=== PATIENT | female | born 1965 | race Two or more races ===

== ENCOUNTER 2020-02-08 15:12 | Inpatient (IN) | payer MEDICAID, OTHER ==
[~2020-02-08] VITALS: Ht 162.6 cm; Wt 113.6 kg
[2020-02-08] MEDS ORDERED: SODIUM CHLORIDE 0.9% 1,000 ML IV ONE (15:24)
[2020-02-08 15:52] LABS: Basophils # (auto) 0 10 ^3/uL (0-0.2); Eosinophils # (auto) 0.1 10 ^3/uL (0-0.8); Monocytes # (auto) 0.7 10 ^3/uL (0-1.3); Neutrophils # (auto) 10.6 10 ^3/uL (1.6-8.6)
[2020-02-08 15:54] LABS: Basophils % (auto) 0.4 % (0.0-2.0); Eosinophils % (auto) 0.6 % (0.0-7.0); Hematocrit 24.6 % (36.0-46.0); Hemoglobin 7.5 g/dL (12.2-16.2); Lymphocytes # (auto) 1.1 10 ^3/uL (0.4-5.4); Lymphocytes % (auto) 8.9 % (10.0-50.0); Mean Corpuscular Hemoglobin 22.5 pg (28.0-32.0); Mean Corpuscular Hgb Conc. 30.5 g/dL (32.0-36.0); Mean Corpuscular Volume 73.8 fL (80.0-100.0); Monocytes % (auto) 5.5 % (0.0-12.0); Neutrophils % (auto) 84.6 % (37.0-80.0); Nucleated Red Blood Cells % 0.8 %; Platelet Count (auto) 494 10^3/uL (140-450); Red Blood Cells 3.33 10^6/uL (4.0-5.20); White Blood Cell 12.5 10^3/uL (4.4-10.8)
[2020-02-08 15:55] LABS: Red Cell Distribution Width 20.9 % (11.8-14.3)
[2020-02-08 16:03] LABS: Calcium 8.1 mg/dL (8.5-10.1); Potassium 3.4 mmol/L (3.5-5.1)
[2020-02-08 16:08] LABS: BUN/Creatinine Ratio 15.5; Bilirubin, Total 1.8 mg/dL (0.2-1.0); Total Protein 6.4 g/dL (6.4-8.2)
[2020-02-08] MEDS ORDERED: FUROSEMIDE 40 MG/4 ML VIAL IV ONE (16:45)
[2020-02-08] MEDS ORDERED: SODIUM CHL 3% 500 ML IV ONE (16:45)
[2020-02-08] MEDS ORDERED: POTASSIUM EFFERVESENT TAB 25 MEQ PO ONE (16:45)
[2020-02-08] MEDS ORDERED: SPIRONOLACTONE 25 MG TAB PO ONE (16:45)
[2020-02-08] MEDS: MAGNESIUM SULFATE 1GM/100ML 100 ML IV SCH ×3 (17:36→23:03)
[2020-02-08] MEDS ORDERED: LEVOTHYROXINE SODIUM 25 MCG TAB PO ONE (18:15)
[2020-02-08] MEDS ORDERED: HYDROcodone-ACET 5/325MG TAB PO PRN (18:45)
[2020-02-08] MEDS ORDERED: MORPHINE SULF INJ 2 MG/ML SYRINGE 1ML IV PRN ×2 (18:45)
[2020-02-08] MEDS ORDERED: hydrALAZINE HCL 20 MG/ML VL IV PRN (18:45)
[2020-02-08] MEDS ORDERED: ONDANSETRON HCL 4 MG/2 ML VIAL IV PRN (18:45)
[2020-02-08] MEDS ORDERED: NITROGLYCERIN 0.4 MG SL TAB SL PRN (18:45)
[2020-02-08 19:14] LABS: Urine Bacteria MANY /hpf (None Seen); Urine Blood TRACE /uL (Negative); Urine WBC 30 /hpf (0 - 5)
[2020-02-08 19:31] LABS: % Iron Saturation 4.4 % (15-50)
[2020-02-08 19:38] LABS: Alcohol, Urine < 3.0 mg/dL (0-10); Amphetamine Screen, Urine NEGATIVE (NEGATIVE); Barbiturate Scree,Urine NEGATIVE (NEGATIVE); Benzodiazephine Screen, Urine NEGATIVE (NEGATIVE); Cannabinoid Screen, Urine NEGATIVE (NEGATIVE); Cocaine Screen, Urine NEGATIVE (NEGATIVE); Opiate Scree,Urine NEGATIVE (NEGATIVE); Phencyclidine Screen, Urine NEGATIVE (NEGATIVE)
[2020-02-08] MEDS: ATORVASTATIN 20 MG TAB PO SCH (21:55)
[2020-02-08] MEDS: METOPROLOL TARTRATE 25 MG TAB PO SCH (21:56)
[2020-02-08] MEDS ORDERED: MAGNESIUM SULFATE 1GM/100ML 100 ML IV ONE (23:00)
[2020-02-09] MEDS: FUROSEMIDE 40 MG/4 ML VIAL IV SCH ×2 (06:17→18:00)
[2020-02-09 06:47] LABS: Eosinophils # (auto) 0.1 10 ^3/uL (0-0.8); Hemoglobin 7.1 g/dL (12.2-16.2); Lymphocytes # (auto) 0.8 10 ^3/uL (0.4-5.4); Monocytes # (auto) 0.4 10 ^3/uL (0-1.3); Nucleated Red Blood Cells % 0.6 %
[2020-02-09 06:51] LABS: Basophils # (auto) 0 10 ^3/uL (0-0.2); Basophils % (auto) 0.3 % (0.0-2.0); Eosinophils % (auto) 0.8 % (0.0-7.0); Hematocrit 23.4 % (36.0-46.0); Lymphocytes % (auto) 6.5 % (10.0-50.0); Mean Corpuscular Hemoglobin 23.1 pg (28.0-32.0); Mean Corpuscular Hgb Conc. 30.2 g/dL (32.0-36.0); Mean Corpuscular Volume 76.4 fL (80.0-100.0); Monocytes % (auto) 3.7 % (0.0-12.0); Neutrophils # (auto) 10.5 10 ^3/uL (1.6-8.6); Neutrophils % (auto) 88.7 % (37.0-80.0); Platelet Count (auto) 463 10^3/uL (140-450); Red Blood Cells 3.06 10^6/uL (4.0-5.20); White Blood Cell 11.9 10^3/uL (4.4-10.8)
[2020-02-09 07:00] LABS: Red Cell Distribution Width 21.2 % (11.8-14.3)
[2020-02-09 07:17] LABS: Potassium 3.2 mmol/L (3.5-5.1)
[2020-02-09 07:33] LABS: BUN/Creatinine Ratio 14.5; Calcium 7.9 mg/dL (8.5-10.1)
[2020-02-09] MEDS ORDERED: POTASSIUM CHL 20 Meq TABLET PO ONE (09:00)
[2020-02-09 09:25] LABS: Free T4 (Free Thyroxine) 0.82 ng/dL (0.89-1.76)
[2020-02-09 09:26] LABS: Free T3 1.49 pg/mL (2.3-4.2)
[2020-02-09] MEDS: METOPROLOL TARTRATE 25 MG TAB PO SCH (10:00)
[2020-02-09] MEDS: LISINOPRIL 10 MG TAB PO SCH (10:00)
[2020-02-09 10:04] LABS: INR 1.13 (0.9-1.15)
[2020-02-09] MEDS: ASPirin-EC 81 mg tab PO SCH (10:15)
[2020-02-09] MEDS: FAMOTIDINE 20 MG TAB PO SCH (10:15)
[2020-02-09] MEDS: ENOXAPARIN SOD 40 MG/0.4 ML SYRINGE SC SCH (10:16)
[2020-02-09 13:13] LABS: Cholesterol 131 mg/dL (< 200)
[2020-02-09 13:15] LABS: HDL Cholesterol 70 mg/dL (40-59); LDL Cholesterol 53 mg/dL (< 100); Triglycerides 81 mg/dL (< 150)
[2020-02-09] MEDS ORDERED: LEVOTHYROXINE SODIUM 100 MCG/5 ML INJ IV ONE (13:15)
[2020-02-09] MEDS ORDERED: cefTRIAXone 1GM/50ML D5W 50 ML IV ONE (15:45)
[2020-02-09] MEDS ORDERED: AZITHROMYCIN 500MG/ 250ML 250 ML IV ONE (16:30)
[2020-02-09] MEDS: ALBUTEROL SULF 2.5 MG/0.5ML(0.5%) NEB SOLN NEB SCH ×2 (18:08→22:00)
[2020-02-09] MEDS: IPRATROPIUM BROM 0.5 MG/2.5ML INH SOL NEB SCH ×2 (18:09→22:00)
[2020-02-09 19:21] VITALS: BP 104/59
[2020-02-09] MEDS ORDERED: ALBUTEROL SULF HFA 90MCG INH 200DOSE IN SCH (22:00)
[2020-02-09] MEDS ORDERED: ALBUTEROL SULF 2.5 MG/0.5ML(0.5%) NEB SOLN NEB SCH (22:00)
[2020-02-09] MEDS: ATORVASTATIN 20 MG TAB PO SCH (22:14)
[2020-02-10] VITALS (7 sets, daily range): BP systolic 90–110; BP diastolic 55–81
--- NOTE | 2020-02-10 00:30 | NUR ---
Telemetry admit from [facility] admitted to Telemetry unit after SBAR received. Patient oriented to ANDREAS WALTERS RN primary RN, unit, room, bed, and unit policies regarding patient care and visiting hours. Patient now on continuous telemetry monitoring, tele box #21 and telemetry reading on arrival to unit is Sinus Rhythm at 80bpm. Patient placed on bedside oxygen, weighed by bedscale and encouraged to call if they need something. All questions and concerns addressed, patient verbalized understanding.
--- NOTE | 2020-02-10 00:55 | NUR ---
Blood draw done
[2020-02-10] MEDS: ALBUTEROL SULF 2.5 MG/0.5ML(0.5%) NEB SOLN NEB SCH ×6 (02:00→22:55)
[2020-02-10] MEDS: IPRATROPIUM BROM 0.5 MG/2.5ML INH SOL NEB SCH ×6 (02:00→22:55)
--- NOTE | 2020-02-10 02:00 | NUR ---
RT NOTE HHN TX HELD PER DR LEVY UNTIL TEST RESULTS COME BACK. RESULTS NOT AVAILABLE AT THIS TIME.
--- NOTE | 2020-02-10 03:25 | NUR ---
Patient Negative for Covid. Will transfer patient out of unit.
--- NOTE | 2020-02-10 03:30 | NUR ---
Endorsed care to Mervat KUHN. Patient transferred to room 209 via wheelchair on 4L O2 nasal canula.
[2020-02-10] MEDS: LEVOTHYROXINE SODIUM 50 MCG TAB PO SCH (05:52)
[2020-02-10] MEDS: FUROSEMIDE 40 MG/4 ML VIAL IV SCH ×2 (06:00→17:43)
--- NOTE | 2020-02-10 07:06 | NUR ---
Closing Note patient awake resting in bed with even and unlabored respirations, on oxygen at 2L via NC, no s/s of distress. Bed in lowest locked position with side rails up x 2 and call light within reach. Endorsed care to day shift RN.
--- NOTE | 2020-02-10 08:20 | NUR ---
OPENING SHIFT NOTE: PATIENT RESTING ON SIDE OF THE BED, ASSISTED TO CHAIR. RESPIRATIONS EVEN AND UNLABORED. A/OX4. ASSESSED IV ACCESS FOR STRESS LAB PROTOCOL. IV 22G, NEED ADDITIONAL 20G FOR PROCEDURE. MIDLINE ORDERS PLACED, SINCE PATIENT NOTED TO HAVE LIMITED ACCESS. STRESS LAB MADE AWARE, PATIENT NPO. URINE CULTURE COLLECTED. PATIENT UPDATED ON PLAN OF CARE. CALL LIGHT WITHIN REACH, WILL CONTINUE TO MONITOR.
[2020-02-10] MEDS ORDERED: ADENOSINE 93 MG in GIVE UN-DILUTED 0 ML IV STA (08:39)
[2020-02-10] MEDS: cefTRIAXone 1GM/50ML D5W 50 ML IV SCH (09:02)
[2020-02-10] MEDS: ASPirin-EC 81 mg tab PO SCH (09:16)
[2020-02-10] MEDS: FAMOTIDINE 20 MG TAB PO SCH (09:16)
[2020-02-10] MEDS: ENOXAPARIN SOD 40 MG/0.4 ML SYRINGE SC SCH (09:17)
[2020-02-10] MEDS: LISINOPRIL 10 MG TAB PO SCH (09:18)
[2020-02-10] MEDS ORDERED: AZITHROMYCIN 500MG/ 250ML 250 ML IV SCH (10:00)
--- NOTE | 2020-02-10 10:48 | NUR ---
PATIENT ABLE TO AMBULATE TO TOILET WITH FWW. PATIENT REPORTS HAVING A BM.
[2020-02-10] MEDS ORDERED: POTASSIUM CHL 20 Meq TABLET PO ONE ×2 (12:00→15:45)
--- NOTE | 2020-02-10 12:30 | NUR ---
ZAMBRANO DISCONTINUED: 400ML LIGHT LETTY URINE NOTED IN BAG. 10CC REMOVED FROM BALLOON. CATHETER INTACT. HAT PLACED IN TOILET FOR ACCURATE I/O'S.
[2020-02-10 12:59] LABS: Basophils # (auto) 0.1 10 ^3/uL (0-0.2); Eosinophils # (auto) 0.2 10 ^3/uL (0-0.8); Mean Corpuscular Volume 79.5 fL (80.0-100.0); Monocytes # (auto) 0.6 10 ^3/uL (0-1.3); White Blood Cell 11.4 10^3/uL (4.4-10.8)
[2020-02-10 13:01] LABS: Eosinophils % (auto) 1.7 % (0.0-7.0); Hematocrit 26.1 % (36.0-46.0); Hemoglobin 7.3 g/dL (12.2-16.2); Lymphocytes % (auto) 8.9 % (10.0-50.0); Mean Corpuscular Hemoglobin 22.2 pg (28.0-32.0); Mean Corpuscular Hgb Conc. 27.9 g/dL (32.0-36.0); Monocytes % (auto) 5.3 % (0.0-12.0); Neutrophils # (auto) 9.5 10 ^3/uL (1.6-8.6); Neutrophils % (auto) 83.1 % (37.0-80.0); Nucleated Red Blood Cells % 0.4 %; Platelet Count (auto) 415 10^3/uL (140-450); Red Blood Cells 3.28 10^6/uL (4.0-5.20)
--- NOTE | 2020-02-10 13:06 | NUR ---
PATIENT BELONGINGS BROUGHT TO BEDSIDE.
[2020-02-10 13:08] LABS: Red Cell Distribution Width 22.1 % (11.8-14.3)
[2020-02-10 13:11] LABS: Calcium 8.6 mg/dL (8.5-10.1); Potassium 3.6 mmol/L (3.5-5.1)
[2020-02-10 13:14] LABS: BUN/Creatinine Ratio 13.4
[2020-02-10] MEDS ORDERED: SODIUM FERR GLUC 62.5MG/5ML 125 MG in SODIUM CHL 0.9% 100 ML IV ONE (13:30)
--- NOTE | 2020-02-10 13:37 | NUR ---
CALL MADE TO PHARMACY FOR NEW FERRLECIT ORDER.
--- NOTE | 2020-02-10 14:35 | NUR ---
CALL MADE TO PHARMACY A SECOND TIME FOR FERRLECIT TO BE SENT UP.
--- NOTE | 2020-02-10 14:38 | NUR ---
RT AT BEDSIDE.
--- NOTE | 2020-02-10 15:15 | NUR ---
Midline Placement: Patient educated on need for midline placement. All risks and benefits explained and all questions and concerns addresses prior to procedure. 18g/10cm midline inserted via left cephalic vein using Ultrasound. Sterile technique utilized. Blood return obtained from lumen and flushed easily with NS using proper technique. Midline secured with saline lock; biodisc and occlusive dressing applied. Primary RN notified. Midline lot #[id number]
--- NOTE | 2020-02-10 15:57 | NUR ---
STRATEGY ANALYST AT BEDSIDE.
[2020-02-10] MEDS: NICOTINE 21MG/24 HR TOPICAL PATCH TD SCH (18:05)
--- NOTE | 2020-02-10 18:50 | NUR ---
CARE ENDORSED TO NOC RN.
--- NOTE | 2020-02-10 19:35 | NUR ---
Opening Shift Note Assumed care of patient, awake and alert. No S/S of distress/SOB or pain. Instructed on POC and to call for assist PRN, will continue to monitor for changes Q1hr and PRN.
[2020-02-10] MEDS: ATORVASTATIN 20 MG TAB PO SCH (23:28)
[2020-02-10] MEDS: POTASSIUM CHL 20 Meq TABLET PO SCH (23:29)
[2020-02-11] VITALS (7 sets, daily range): BP systolic 84–118; BP diastolic 47–63
[2020-02-11] MEDS: IPRATROPIUM BROM 0.5 MG/2.5ML INH SOL NEB SCH ×6 (02:41→22:15)
[2020-02-11] MEDS: ALBUTEROL SULF 2.5 MG/0.5ML(0.5%) NEB SOLN NEB SCH ×6 (02:41→22:15)
[2020-02-11] MEDS: FUROSEMIDE 40 MG/4 ML VIAL IV SCH ×2 (05:48→18:00)
[2020-02-11] MEDS: LEVOTHYROXINE SODIUM 50 MCG TAB PO SCH (06:40)
[2020-02-11 07:02] LABS: Potassium 4.2 mmol/L (3.5-5.1)
[2020-02-11 07:03] LABS: BUN/Creatinine Ratio 15.8; Calcium 8.7 mg/dL (8.5-10.1)
--- NOTE | 2020-02-11 07:50 | NUR ---
Opening Shift Note Assumed care of patient, awake and alert. No S/S of distress/SOB or pain. Instructed on POC and to call for assist PRN, will continue to monitor for changes Q1hr and PRN. Bed locked in lowest position with two side rails up and call light in reach.
[2020-02-11] MEDS: cefTRIAXone 1GM/50ML D5W 50 ML IV SCH (09:12)
[2020-02-11] MEDS: LISINOPRIL 10 MG TAB PO SCH (09:12)
[2020-02-11] MEDS: FAMOTIDINE 20 MG TAB PO SCH (09:12)
[2020-02-11] MEDS: POTASSIUM CHL 20 Meq TABLET PO SCH ×2 (09:13→21:36)
[2020-02-11] MEDS: ASPirin-EC 81 mg tab PO SCH (09:13)
[2020-02-11] MEDS: ENOXAPARIN SOD 40 MG/0.4 ML SYRINGE SC SCH (09:13)
[2020-02-11] MEDS: AZITHROMYCIN 250 MG TAB PO SCH (09:13)
[2020-02-11] MEDS: NICOTINE 21MG/24 HR TOPICAL PATCH TD SCH (09:14)
[2020-02-11] MEDS: Ensure HIGH Protein Chocolate 8oz Bottle PO SCH ×2 (12:00→18:22)
[2020-02-11] MEDS: SODIUM FERR GLUC 62.5MG/5ML 125 MG in SODIUM CHL 0.9% 100 ML IV SCH (15:18)
--- NOTE | 2020-02-11 15:40 | NUR ---
Assumed care of patient Patient is awake, alert and oriented x4. No signs or symptoms of distress noted at this time. Bed in low and locked position, call light within reach. Patient instructed to call for assistance. Will continue to monitor Q1 hour and PRN.
--- NOTE | 2020-02-11 19:10 | NUR ---
Closing note Report given to steward/stewardess night RN. No signs or symptoms of distress noted at this time.
--- NOTE | 2020-02-11 19:30 | NUR ---
Opening Shift Note Assumed care of patient, awake and alert X4. No S/S of distress/SOB or pain. Call light is within reach, side rails up x2, bed is in the lowest position. Instructed on POC and to call for assist PRN. All questions and concerns answered, will continue to monitor for changes Q1hr and PRN. Bed locked in lowest position with two side rails up and call light in reach.
[2020-02-11] MEDS: ATORVASTATIN 20 MG TAB PO SCH (21:36)
[2020-02-12] VITALS (7 sets, daily range): BP systolic 97–128; BP diastolic 56–75
[2020-02-12] MEDS: IPRATROPIUM BROM 0.5 MG/2.5ML INH SOL NEB SCH ×6 (02:21→22:20)
[2020-02-12] MEDS: ALBUTEROL SULF 2.5 MG/0.5ML(0.5%) NEB SOLN NEB SCH ×6 (02:21→22:20)
[2020-02-12] MEDS: LEVOTHYROXINE SODIUM 50 MCG TAB PO SCH (06:07)
[2020-02-12] MEDS: FUROSEMIDE 40 MG/4 ML VIAL IV SCH ×2 (06:07→17:18)
[2020-02-12 07:15] LABS: Basophils # (auto) 0.1 10 ^3/uL (0-0.2); Basophils % (auto) 0.8 % (0.0-2.0); Eosinophils # (auto) 0.2 10 ^3/uL (0-0.8); Hemoglobin 7.5 g/dL (12.2-16.2); Lymphocytes # (auto) 1.1 10 ^3/uL (0.4-5.4); Lymphocytes % (auto) 10.5 % (10.0-50.0); Mean Corpuscular Hemoglobin 23.3 pg (28.0-32.0); Mean Corpuscular Hgb Conc. 27.9 g/dL (32.0-36.0); Mean Corpuscular Volume 83.7 fL (80.0-100.0); Monocytes # (auto) 0.8 10 ^3/uL (0-1.3); Monocytes % (auto) 7.8 % (0.0-12.0); Neutrophils # (auto) 7.9 10 ^3/uL (1.6-8.6); Neutrophils % (auto) 78.9 % (37.0-80.0); Platelet Count (auto) 236 10^3/uL (140-450); Red Blood Cells 3.22 10^6/uL (4.0-5.20); Red Cell Distribution Width 23.1 % (11.8-14.3); White Blood Cell 10.1 10^3/uL (4.4-10.8)
[2020-02-12 07:32] LABS: Potassium 5.3 mmol/L (3.5-5.1)
[2020-02-12 07:45] LABS: BUN/Creatinine Ratio 19.8; Calcium 9.4 mg/dL (8.5-10.1)
[2020-02-12] MEDS: Ensure HIGH Protein Chocolate 8oz Bottle PO SCH ×3 (08:00→17:18)
[2020-02-12] MEDS: LISINOPRIL 10 MG TAB PO SCH (10:00)
[2020-02-12] MEDS: NICOTINE 21MG/24 HR TOPICAL PATCH TD SCH (10:07)
[2020-02-12] MEDS: ENOXAPARIN SOD 40 MG/0.4 ML SYRINGE SC SCH (10:08)
[2020-02-12] MEDS: FAMOTIDINE 20 MG TAB PO SCH (10:08)
[2020-02-12] MEDS: cefTRIAXone 1GM/50ML D5W 50 ML IV SCH (10:08)
[2020-02-12] MEDS: ASPirin-EC 81 mg tab PO SCH (10:09)
[2020-02-12] MEDS: POTASSIUM CHL 20 Meq TABLET PO SCH (10:09)
[2020-02-12] MEDS: AZITHROMYCIN 250 MG TAB PO SCH (10:09)
--- NOTE | 2020-02-12 11:48 | NUR ---
Est energy needs 0959-9730 kcal (14-16 kcal/kg BW 122.1kg) Est protein needs 55-71g (1-1.3g/kg IBW 54.5kg) Will reassess prn. Addendum: 02/12/20 at [address] Amended: Links added.
[2020-02-12] MEDS: SODIUM FERR GLUC 62.5MG/5ML 125 MG in SODIUM CHL 0.9% 100 ML IV SCH (12:23)
--- NOTE | 2020-02-12 12:39 | NUR ---
Pt was observed ambulating independently to bathroom with a 4WW. Pt states she does not want skilled physical therapy because she does not need assistance with ambulation. Will discharge patient from caseload.
--- NOTE | 2020-02-12 19:25 | NUR ---
Opening shift note Assumed care of patient who is sitting up on the side of the bed A&Ox4, respirations even and non-labored with no s/s of distress. Discussed POC with patient, fluid restrictions and strict I/Os, in which the patient verbalized understanding. IV patent and saline locked at this time. Bed is in the lowest locked position with 2 side rails up. The call light is within reach. Will continue to monitor.
[2020-02-12] MEDS: ATORVASTATIN 20 MG TAB PO SCH (23:15)
[2020-02-13] VITALS (7 sets, daily range): BP systolic 92–116; BP diastolic 49–70
[2020-02-13] MEDS: IPRATROPIUM BROM 0.5 MG/2.5ML INH SOL NEB SCH ×6 (02:10→22:15)
[2020-02-13] MEDS: ALBUTEROL SULF 2.5 MG/0.5ML(0.5%) NEB SOLN NEB SCH ×6 (02:10→22:15)
[2020-02-13] MEDS: ACETAMINOPHEN 500 MG TAB PO PRN (04:30)
--- NOTE | 2020-02-13 04:30 | NUR ---
Patient temperature 101.8 Administered 500 mg Tylenol per EMAR. Will continue to monitor. Addendum: 02/13/20 at 0646 by DONAVON CHRISTENSEN RN RN Removed blankets, cold packs administered.
--- NOTE | 2020-02-13 05:30 | NUR ---
Temperature reassessed Patient temperature 99.0. Will continue to monitor.
[2020-02-13] MEDS: FUROSEMIDE 40 MG/4 ML VIAL IV SCH ×2 (05:41→18:00)
[2020-02-13] MEDS: LEVOTHYROXINE SODIUM 50 MCG TAB PO SCH (05:42)
[2020-02-13 06:26] LABS: Basophils # (auto) 0.1 10 ^3/uL (0-0.2); Monocytes # (auto) 0.9 10 ^3/uL (0-1.3); Monocytes % (auto) 8.2 % (0.0-12.0); Neutrophils # (auto) 8.9 10 ^3/uL (1.6-8.6); White Blood Cell 11.2 10^3/uL (4.4-10.8)
[2020-02-13 06:28] LABS: Basophils % (auto) 0.8 % (0.0-2.0); Eosinophils # (auto) 0.3 10 ^3/uL (0-0.8); Eosinophils % (auto) 2.4 % (0.0-7.0); Hematocrit 21.3 % (36.0-46.0); Lymphocytes % (auto) 9.1 % (10.0-50.0); Mean Corpuscular Hemoglobin 23.2 pg (28.0-32.0); Mean Corpuscular Hgb Conc. 29.3 g/dL (32.0-36.0); Mean Corpuscular Volume 79.3 fL (80.0-100.0); Neutrophils % (auto) 79.5 % (37.0-80.0); Platelet Count (auto) 401 10^3/uL (140-450); Red Blood Cells 2.69 10^6/uL (4.0-5.20)
[2020-02-13 06:46] LABS: Potassium 4.9 mmol/L (3.5-5.1); Red Cell Distribution Width 22.8 % (11.8-14.3)
[2020-02-13 06:49] LABS: Hemoglobin 6.2 g/dL (12.2-16.2)
--- NOTE | 2020-02-13 06:51 | NUR ---
Critical Lab Hgb 6.2. Hospitalist paged.
[2020-02-13 06:56] LABS: BUN/Creatinine Ratio 24.3; Calcium 8.8 mg/dL (8.5-10.1)
--- NOTE | 2020-02-13 06:56 | NUR ---
Hospitalist Adam returned call Orders: Type and screen, 2 units of blood. Give one unit, hold second unit.
--- NOTE | 2020-02-13 07:10 | NUR ---
Closing shift note Patient resting with eyes closed, respirations even and non-labored without s/s of distress. Endorsed care to day RNTaryn.
[2020-02-13] MEDS: Ensure HIGH Protein Chocolate 8oz Bottle PO SCH ×3 (07:25→18:00)
[2020-02-13] MEDS: ENOXAPARIN SOD 40 MG/0.4 ML SYRINGE SC SCH (08:04)
[2020-02-13] MEDS: cefTRIAXone 1GM/50ML D5W 50 ML IV SCH (09:00)
[2020-02-13] MEDS: ASPirin-EC 81 mg tab PO SCH (10:00)
[2020-02-13] MEDS: POTASSIUM CHL 10 Meq TABLET PO SCH (10:00)
[2020-02-13] MEDS ORDERED: FUROSEMIDE 20 MG/2 ML VIAL IV ONE (10:15)
--- NOTE | 2020-02-13 10:15 | NUR ---
BLOOD TRANSFUSION STARTED
[2020-02-13] MEDS: FAMOTIDINE 20 MG TAB PO SCH (11:36)
[2020-02-13] MEDS: AZITHROMYCIN 250 MG TAB PO SCH (11:36)
[2020-02-13] MEDS: NICOTINE 21MG/24 HR TOPICAL PATCH TD SCH (11:36)
--- NOTE | 2020-02-13 12:30 | NUR ---
NEW IV INSERTION TO THE LEFT AC 20 G . PATIENT TOLERATED WELL.
--- NOTE | 2020-02-13 12:45 | NUR ---
ZAMBRANO INSERTED PER ORDERS. PATIENT TOLERATED WELL .
--- NOTE | 2020-02-13 13:10 | NUR ---
BLOOD TRANSFUSION ENDED PATIENT TOLERATED WELL. NO SIGNS AND SYMPTOMS OF DISTRESS NOTED.
--- NOTE | 2020-02-13 18:44 | NUR ---
NO 2ND UNIT OF BLOOD GIVEN PER THE NOTE IN BLOOD ORDER PLACED. LABS WILL BE DRAWN IN AM PER DR LEVY AND ORDERS THAT ARE PLACED.
--- NOTE | 2020-02-13 19:30 | NUR ---
Opening shift note Assumed care of patient who is A&Ox4, sitting up in bed, respirations even and non-labored with no s/s of distress or current dizziness. Discussed POC with patient who verbalized understanding. Villalobos below patient, patent, draining clear pale yellow urine. Bed is in lowest locked position with 2 side rails up. Call light within reach, will continue to monitor.
[2020-02-13] MEDS: ATORVASTATIN 20 MG TAB PO SCH (21:08)
[2020-02-14] MEDS: ALBUTEROL SULF 2.5 MG/0.5ML(0.5%) NEB SOLN NEB SCH ×4 (02:10→13:59)
[2020-02-14] MEDS: IPRATROPIUM BROM 0.5 MG/2.5ML INH SOL NEB SCH ×4 (02:10→13:59)
[2020-02-14 05:00] VITALS: BP 103/60
[2020-02-14] MEDS: FUROSEMIDE 40 MG/4 ML VIAL IV SCH (05:47)
[2020-02-14] MEDS: LEVOTHYROXINE SODIUM 50 MCG TAB PO SCH (05:47)
[2020-02-14 06:14] LABS: Basophils # (auto) 0.1 10 ^3/uL (0-0.2); Eosinophils # (auto) 0.3 10 ^3/uL (0-0.8); Eosinophils % (auto) 2.8 % (0.0-7.0); Hemoglobin 7.4 g/dL (12.2-16.2); Monocytes # (auto) 0.9 10 ^3/uL (0-1.3); Neutrophils # (auto) 7.7 10 ^3/uL (1.6-8.6)
[2020-02-14 06:17] LABS: Basophils % (auto) 0.6 % (0.0-2.0); Lymphocytes # (auto) 1.1 10 ^3/uL (0.4-5.4); Lymphocytes % (auto) 10.6 % (10.0-50.0); Mean Corpuscular Hemoglobin 24.7 pg (28.0-32.0); Mean Corpuscular Hgb Conc. 30.8 g/dL (32.0-36.0); Mean Corpuscular Volume 80.2 fL (80.0-100.0); Monocytes % (auto) 9.1 % (0.0-12.0); Neutrophils % (auto) 76.9 % (37.0-80.0); Nucleated Red Blood Cells % 0.1 %; Platelet Count (auto) 400 10^3/uL (140-450); Red Blood Cells 2.99 10^6/uL (4.0-5.20)
[2020-02-14 06:23] LABS: Potassium 4.5 mmol/L (3.5-5.1)
[2020-02-14 06:29] LABS: BUN/Creatinine Ratio 25.8; Calcium 9.2 mg/dL (8.5-10.1)
[2020-02-14 06:49] LABS: Red Cell Distribution Width 22.4 % (11.8-14.3)
--- NOTE | 2020-02-14 07:00 | NUR ---
Opening Shift Note Received report on the patient. Awake lying in bed. Patient shows no signs of distress at this time. Discussed the plan of care with the patient. Bed in lowest position, side rails up x2, and the call light is within reach.
--- NOTE | 2020-02-14 07:10 | NUR ---
Closing shift note Patient resting, no s/s of distress at this time. Endorsed care to day shift RN.
[2020-02-14 08:44] VITALS: BP 84/49
[2020-02-14] MEDS ORDERED: POVIDONE IODINE 10 % TOPICAL OINT 30GM TOP ONE (08:52)
[2020-02-14] MEDS: ASPirin-EC 81 mg tab PO SCH (09:25)
[2020-02-14] MEDS: cefTRIAXone 1GM/50ML D5W 50 ML IV SCH (09:25)
[2020-02-14] MEDS: Ensure HIGH Protein Chocolate 8oz Bottle PO SCH ×3 (09:25→17:35)
[2020-02-14] MEDS: NICOTINE 21MG/24 HR TOPICAL PATCH TD SCH (09:26)
[2020-02-14] MEDS: AZITHROMYCIN 250 MG TAB PO SCH (09:26)
[2020-02-14] MEDS: FAMOTIDINE 20 MG TAB PO SCH (09:26)
[2020-02-14] MEDS: POTASSIUM CHL 10 Meq TABLET PO SCH (10:00)
[2020-02-14] MEDS ORDERED: chlordiazePOXIDE HCL 25 MG CAP PO ONE (11:00)
[2020-02-14 13:00] VITALS: BP 117/67
--- NOTE | 2020-02-14 15:20 | NUR ---
assessment Patient is a 54 year old female who is alert and oriented. Patients cognitive abilities are intact. Prior to admission patient lived home with family and functioned independently. Patient informed me she is able to care for her own ADLs. Per patient she will return home to her prior living arrangements post discharge. Patient informed me she is here visiting her son in [place]. Patient is from [place]. Patient informed me she drinks heavily and smokes cigarettes. Patient is open to quitting ETOH. I have provided patient with resources for inpatient and out patient facilities along with AA meeting. Patient has a rollator for home use. I will continue to monitor and follow up as appropriate. I informed patient she has a right to speak to a social work nurse regarding all care. I informed patient she has a right to participate in any and all discharge planning. Patient does not have a POA and advanced directive. I have offered patient information on POA and advanced directives. I informed the patient the advantages and benefits of having an Advanced Directive. Patient verbalized understanding and agreed to discharge plan. Addendum: 02/14/20 at 1527 by Candace PHILLIPS Amended: Links added.
[2020-02-14] MEDS ORDERED: ALBUTEROL SULF 2.5 MG/0.5ML(0.5%) NEB SOLN NEB PRN (15:30)
[2020-02-14] MEDS ORDERED: FOLIC ACID 1 MG TAB PO ONE (15:30)
[2020-02-14] MEDS ORDERED: IPRATROPIUM BROM 0.5 MG/2.5ML INH SOL NEB PRN (15:30)
[2020-02-14] MEDS ORDERED: SODIUM FERR GLUC 62.5MG/5ML 125 MG in SODIUM CHL 0.9% 100 ML IV ONE (15:45)
[2020-02-14] MEDS: chlordiazePOXIDE HCL 25 MG CAP PO SCH ×2 (17:35→23:22)
[2020-02-14] MEDS ORDERED: FUROSEMIDE 20 MG/2 ML VIAL IV SCH (18:00)
--- NOTE | 2020-02-14 19:00 | NUR ---
assume care, patient asleep, easy to arouse. Unlabored breathing, O2 at 2LPM via nasal canula. Bed on lowest position, call light with in reach, side rail up X2 for safety.
--- NOTE | 2020-02-14 20:18 | NUR ---
Respiratory note: ASSESSED PT FOR PRN MED NEB TX. PS SHOWS NO S/S OF SOB OR RESPIRATORY DISTRESS. INFORMED PT IF SOB OCCURS CONTACT RESPIRATORY FOR TX. WILL CONTINUE TO MONITOR.
[2020-02-14 22:00] VITALS: BP 105/65
--- NOTE | 2020-02-14 22:00 | NUR ---
Patient still sleep, we left her her dinner tray so she can eat once she wakes up, unlabored breathing, No signs of distress.
[2020-02-14] MEDS: ATORVASTATIN 20 MG TAB PO SCH (22:40)
--- NOTE | 2020-02-14 23:26 | NUR ---
Patient is awake now. denies pain or discomfort. Medication given to patient. Patient is having tremors. Noted patient has old scabs through her forearms and bilateral knees . Will continue to monitor.
[2020-02-15 05:00] VITALS: BP 110/71
[2020-02-15] MEDS: LEVOTHYROXINE SODIUM 50 MCG TAB PO SCH (06:07)
[2020-02-15] MEDS: chlordiazePOXIDE HCL 25 MG CAP PO SCH ×3 (06:07→17:46)
[2020-02-15 06:10] LABS: Basophils # (auto) 0.1 10 ^3/uL (0-0.2); Eosinophils # (auto) 0.3 10 ^3/uL (0-0.8); Hemoglobin 7.3 g/dL (12.2-16.2); Lymphocytes # (auto) 0.8 10 ^3/uL (0.4-5.4); Lymphocytes % (auto) 8.6 % (10.0-50.0); Mean Corpuscular Hemoglobin 25.2 pg (28.0-32.0); Monocytes # (auto) 0.8 10 ^3/uL (0-1.3)
[2020-02-15 06:14] LABS: Basophils % (auto) 0.8 % (0.0-2.0); Eosinophils % (auto) 3.4 % (0.0-7.0); Hematocrit 24.1 % (36.0-46.0); Mean Corpuscular Hgb Conc. 30.5 g/dL (32.0-36.0); Mean Corpuscular Volume 82.6 fL (80.0-100.0); Monocytes % (auto) 8.8 % (0.0-12.0); Neutrophils % (auto) 78.4 % (37.0-80.0); Platelet Count (auto) 429 10^3/uL (140-450); Red Blood Cells 2.91 10^6/uL (4.0-5.20)
[2020-02-15 06:23] LABS: Red Cell Distribution Width 24.3 % (11.8-14.3)
[2020-02-15 06:33] LABS: BUN/Creatinine Ratio 23.2; Calcium 8.9 mg/dL (8.5-10.1); Potassium 4.7 mmol/L (3.5-5.1)
[2020-02-15 09:00] VITALS: BP 125/76
[2020-02-15] MEDS: FOLIC ACID 1 MG TAB PO SCH (09:37)
[2020-02-15] MEDS: FAMOTIDINE 20 MG TAB PO SCH (09:37)
[2020-02-15] MEDS: NICOTINE 21MG/24 HR TOPICAL PATCH TD SCH (09:37)
[2020-02-15] MEDS: ASPirin-EC 81 mg tab PO SCH (09:37)
[2020-02-15] MEDS: cefTRIAXone 1GM/50ML D5W 50 ML IV SCH (09:38)
[2020-02-15] MEDS: AZITHROMYCIN 250 MG TAB PO SCH (09:38)
[2020-02-15] MEDS: POTASSIUM CHL 10 Meq TABLET PO SCH (09:38)
[2020-02-15] MEDS: Ensure HIGH Protein Chocolate 8oz Bottle PO SCH ×3 (09:38→17:48)
[2020-02-15] MEDS ORDERED: FUROSEMIDE 40 MG/4 ML VIAL IV ONE (11:45)
--- NOTE | 2020-02-15 12:26 | NUR ---
Nutrition Followup Notes Pt wt is 118.0 kg Pt was sleeping with no relatives at bedside when rounded this morning. Pt is with a Cardiac diet, appetite is good aeb 100% PO intake per RN doc. Pt with no noted distress per RN doc. Will continue to monitor PO status, skin status, pertinent labs and weight trends. Will f/u in 3-5 days. Est energy needs [id number] kcal (14-16 kcal/kg BW 122.1kg) Est protein needs 55-71g (1-1.3g/kg IBW 54.5kg) Will reassess prn. LABS: Na 130 L, Cl 90 L, Alb 3.0 L GI: Pt had 1 BM on 02/11 per RN doc BS: 18 mod risk Refer to wound assessment report for full details. PES: Obesity r/t caloric intake in excess of needs aeb pt BMI is 46.2kg/m2 Comments 1) Continue to monitor po intake, labs, skin 2) Refer pt to [facility] on dc 3) Continue current plan of care
[2020-02-15 13:00] VITALS: BP 108/52
[2020-02-15] MEDS: SODIUM FERR GLUC 62.5MG/5ML 125 MG in SODIUM CHL 0.9% 100 ML IV SCH (13:13)
[2020-02-15] MEDS: ACETAMINOPHEN 500 MG TAB PO PRN (16:50)
--- NOTE | 2020-02-15 16:51 | NUR ---
T 100.3, Tylenol 500 mg given, cooling measure placed. will recheck.
[2020-02-15 17:00] VITALS: BP 110/60
--- NOTE | 2020-02-15 17:55 | NUR ---
Recheck T 98.2.
--- NOTE | 2020-02-15 18:46 | NUR ---
IS at bedside, teaching explained, verbalized understanding.
[2020-02-15] MEDS: IPRATROPIUM BROM 0.5 MG/2.5ML INH SOL NEB SCH (19:21)
[2020-02-15] MEDS: ACETYLCYSTEINE 10 %(100MG/ML) SOL 4ML NEB SCH (19:22)
[2020-02-15] MEDS: ALBUTEROL SULF 2.5 MG/0.5ML(0.5%) NEB SOLN NEB SCH (19:22)
--- NOTE | 2020-02-15 19:29 | NUR ---
Opening Shift Note Received report and assumed care of patient. Patient is asleep, awakens to voice. No signs or symptoms of distress noted. Instructed patient on plan of care and to call for assistance as needed. Will continue to monitor.
[2020-02-15 20:11] VITALS: BP 110/60
[2020-02-15 22:00] VITALS: BP 115/66
[2020-02-15] MEDS: ATORVASTATIN 20 MG TAB PO SCH (22:18)
[2020-02-16] MEDS: chlordiazePOXIDE HCL 25 MG CAP PO SCH ×4 (00:49→17:46)
[2020-02-16 05:00] VITALS: BP 96/53
[2020-02-16] MEDS: ACETAMINOPHEN 500 MG TAB PO PRN ×2 (05:54→18:00)
[2020-02-16] MEDS: LEVOTHYROXINE SODIUM 50 MCG TAB PO SCH (05:54)
[2020-02-16] MEDS: IPRATROPIUM BROM 0.5 MG/2.5ML INH SOL NEB SCH ×4 (06:36→18:25)
[2020-02-16] MEDS: ALBUTEROL SULF 2.5 MG/0.5ML(0.5%) NEB SOLN NEB SCH ×4 (06:36→18:25)
[2020-02-16] MEDS: ACETYLCYSTEINE 10 %(100MG/ML) SOL 4ML NEB SCH ×4 (06:36→18:25)
--- NOTE | 2020-02-16 06:55 | NUR ---
Temperature Patient temperature 100.9. Administered Tylenol 500mg per MD order. Implemented cooling measures. Patient temperature recheck 99.8. Will continue to monitor.
--- NOTE | 2020-02-16 07:41 | NUR ---
Jung catheter dc'd Order to discontinue jung catheter. Jung dc'd with clean technique following deflation of balloon. Patient tolerated well with no complaints of pain. Continue care.
[2020-02-16] MEDS: Ensure HIGH Protein Chocolate 8oz Bottle PO SCH ×3 (08:33→18:28)
[2020-02-16 09:00] VITALS: BP 121/66
[2020-02-16] MEDS: ASPirin-EC 81 mg tab PO SCH (09:26)
[2020-02-16] MEDS: FAMOTIDINE 20 MG TAB PO SCH (09:26)
[2020-02-16] MEDS: POTASSIUM CHL 10 Meq TABLET PO SCH (09:26)
[2020-02-16] MEDS: FOLIC ACID 1 MG TAB PO SCH (09:26)
[2020-02-16] MEDS: NICOTINE 21MG/24 HR TOPICAL PATCH TD SCH (09:28)
[2020-02-16] MEDS ORDERED: FUROSEMIDE 40 MG TAB PO ONE (10:15)
[2020-02-16] MEDS ORDERED: POTASSIUM CHL 10 Meq TABLET PO ONE (10:15)
--- NOTE | 2020-02-16 10:40 | NUR ---
Pt signed consents for procedure, waiting on labs.
[2020-02-16] MEDS: SODIUM FERR GLUC 62.5MG/5ML 125 MG in SODIUM CHL 0.9% 100 ML IV SCH (12:00)
--- NOTE | 2020-02-16 12:00 | NUR ---
Patient urinated clear yellow urine.
[2020-02-16 12:25] LABS: INR 1.01 (0.9-1.15)
[2020-02-16 13:00] VITALS: BP 106/73
--- NOTE | 2020-02-16 13:28 | NUR ---
Pt brought to radiology via wheelchair for paracentesis. Patients vitals remained stable and patient tolerated well. 1308- HR 89 RR 18 BP 120/73 SPO2 100% 1312- Dr Reece at bedside for procedure 1313- HR 87 RR 20 BP 102/54 SPO2 100% 1318- HR 95 RR 25 BP 95/77 SPO2 100% 1322- HR 93 RR 15 BP 144/80 SPO2 99% Pt had 600mls of clear yellow liquid. Pt transported to radiology. Addendum: 02/16/20 at 1340 by Ana Rosa Mackey RN PROCEDURE WAS THORACENTESIS. APPLIED TRANSPARENT DRESSING OVER PETROLEUM DRESSING. PT RETURNED TO ROOM AND UNIT NOTIFIED.
[2020-02-16] MEDS ORDERED: LEV50T PO (16:41)
[2020-02-16] MEDS ORDERED: FAMO20TA10 PO (16:41)
[2020-02-16] MEDS ORDERED: FOLI1TAB6 PO (16:41)
[2020-02-16] MEDS ORDERED: ALBUAER3 IN (16:41)
[2020-02-16] MEDS ORDERED: POTA-167 PO (16:41)
[2020-02-16] MEDS ORDERED: FER325T PO (16:41)
[2020-02-16] MEDS ORDERED: ASPI-394 PO (16:41)
[2020-02-16] MEDS ORDERED: ATOR20TA50 PO (16:41)
[2020-02-16] MEDS ORDERED: FURO40TA4 PO (16:41)
[2020-02-16 17:00] VITALS: BP 105/63
--- NOTE | 2020-02-16 18:10 | NUR ---
Medication delivered to bedside, explained to the patient, verbalized understanding.
--- NOTE | 2020-02-16 18:15 | NUR ---
T 100.5, Tylenol 500 mg given and cooling measure placed. Will continue to monitor.
[2020-02-16 22:00] VITALS: BP 105/56
[2020-02-16] MEDS: ATORVASTATIN 20 MG TAB PO SCH (22:37)
[2020-02-17] MEDS: ALBUTEROL SULF 2.5 MG/0.5ML(0.5%) NEB SOLN NEB SCH ×4 (00:33→18:11)
[2020-02-17] MEDS: IPRATROPIUM BROM 0.5 MG/2.5ML INH SOL NEB SCH ×4 (00:33→18:11)
[2020-02-17] MEDS: ACETYLCYSTEINE 10 %(100MG/ML) SOL 4ML NEB SCH ×4 (00:37→18:10)
[2020-02-17] MEDS: chlordiazePOXIDE HCL 25 MG CAP PO SCH ×5 (00:49→22:50)
[2020-02-17 05:08] VITALS: BP 112/72
[2020-02-17 05:40] LABS: Basophils # (auto) 0.1 10 ^3/uL (0-0.2); Hematocrit 28.6 % (36.0-46.0); Mean Corpuscular Hemoglobin 25.4 pg (28.0-32.0); Monocytes # (auto) 0.8 10 ^3/uL (0-1.3); Neutrophils % (auto) 81.8 % (37.0-80.0)
[2020-02-17 05:42] LABS: Basophils % (auto) 0.6 % (0.0-2.0); Eosinophils # (auto) 0.4 10 ^3/uL (0-0.8); Eosinophils % (auto) 3.4 % (0.0-7.0); Hemoglobin 8.6 g/dL (12.2-16.2); Lymphocytes # (auto) 0.8 10 ^3/uL (0.4-5.4); Lymphocytes % (auto) 7.2 % (10.0-50.0); Mean Corpuscular Hgb Conc. 29.9 g/dL (32.0-36.0); Neutrophils # (auto) 9.4 10 ^3/uL (1.6-8.6); Nucleated Red Blood Cells % 0.1 %; Platelet Count (auto) 487 10^3/uL (140-450); Red Blood Cells 3.37 10^6/uL (4.0-5.20); White Blood Cell 11.5 10^3/uL (4.4-10.8)
[2020-02-17 05:55] LABS: Calcium 9.4 mg/dL (8.5-10.1); Potassium 4.7 mmol/L (3.5-5.1); Red Cell Distribution Width 26.3 % (11.8-14.3)
[2020-02-17 05:57] LABS: BUN/Creatinine Ratio 26.7
[2020-02-17] MEDS: LEVOTHYROXINE SODIUM 50 MCG TAB PO SCH (06:10)
[2020-02-17 09:00] VITALS: BP 105/58
[2020-02-17] MEDS: cefTRIAXone 1GM/50ML D5W 50 ML IV SCH (09:33)
[2020-02-17] MEDS: FAMOTIDINE 20 MG TAB PO SCH (09:33)
[2020-02-17] MEDS: ASPirin-EC 81 mg tab PO SCH (09:34)
[2020-02-17] MEDS: POTASSIUM CHL 10 Meq TABLET PO SCH (09:34)
[2020-02-17] MEDS: FOLIC ACID 1 MG TAB PO SCH (09:34)
[2020-02-17] MEDS: FUROSEMIDE 40 MG TAB PO SCH (09:34)
[2020-02-17] MEDS: NICOTINE 21MG/24 HR TOPICAL PATCH TD SCH (09:35)
[2020-02-17] MEDS: Ensure HIGH Protein Chocolate 8oz Bottle PO SCH ×3 (09:35→18:12)
--- NOTE | 2020-02-17 10:45 | NUR ---
2nd PT eval order received. Pt was recently evaluated and discharged from physical therapy due to being at [facility]. Pt states she is still at [facility] and does not want skilled physical therapy. She states she has all equipment she needs at home. She is safe to discharge home at this time.
--- NOTE | 2020-02-17 11:00 | NUR ---
PAGED VENEER STAPLER SILVICULTURE PROFESSOR RE: ORDER FOR HOME O2 AND BEDSIDE COMMODE.
--- NOTE | 2020-02-17 11:50 | NUR ---
CRAB STEAMER Received a page from HATTIE Chen at 10:59 regarding Social Service for home oxygen and bedside commode. Informed HATTIE Chen I will contact patient health plan to obtain authorization and company to fax DME. Placed called Linda with [employer] advising her patient has orders for home oxygen and bedside commode. Per Linda with [employer] order can be Fax to [facility] . Per Linda no authorization is needed for bedside commode authorization for home oxygen is [id number]. Placed follow up call to HATTIE Chen at 11:46 advised her to fax clinical information to [facility] and [facility] ph:). HATTIE Chen verbalize understanding d/c plan.
--- NOTE | 2020-02-17 12:15 | NUR ---
faxed order for home O2 and commode, h&P, xray,facesheet, and progress notes to [facility] fax # [phone].
--- NOTE | 2020-02-17 12:31 | NUR ---
confirmed faxed medical records received by Yoselin.
[2020-02-17] MEDS: SODIUM FERR GLUC 62.5MG/5ML 125 MG in SODIUM CHL 0.9% 100 ML IV SCH (12:41)
--- NOTE | 2020-02-17 12:47 | NUR ---
Respiratory note: Pt refused scheduled medneb tx at this time, says she wants to eat. HR 95, RR 22, SPO2 95% on 3lpm on nasal cannula. Sitting up eating lunch, no s/s of distress noted.
[2020-02-17 13:00] VITALS: BP 123/72
--- NOTE | 2020-02-17 15:22 | NUR ---
OXYGEN PORTABLE TANK DELIVERED AT BEDSIDE.
--- NOTE | 2020-02-17 16:35 | NUR ---
spoke with Elif regarding delivery of the commode, Elif said it will be delivered in the pt's apartment at [place].
[2020-02-17 17:00] VITALS: BP 123/60
[2020-02-17 22:00] VITALS: BP 105/70
[2020-02-17] MEDS: ATORVASTATIN 20 MG TAB PO SCH (22:50)
[2020-02-18] MEDS: IPRATROPIUM BROM 0.5 MG/2.5ML INH SOL NEB SCH ×3 (00:12→11:53)
[2020-02-18] MEDS: ALBUTEROL SULF 2.5 MG/0.5ML(0.5%) NEB SOLN NEB SCH ×3 (00:12→11:53)
[2020-02-18] MEDS: ACETYLCYSTEINE 10 %(100MG/ML) SOL 4ML NEB SCH ×3 (00:12→11:53)
[2020-02-18 05:00] VITALS: BP 92/44
[2020-02-18] MEDS: chlordiazePOXIDE HCL 25 MG CAP PO SCH ×2 (06:04→12:00)
[2020-02-18] MEDS: LEVOTHYROXINE SODIUM 50 MCG TAB PO SCH (06:04)
--- NOTE | 2020-02-18 07:26 | NUR ---
RECEIVED PATIENT FROM NOC SHIFT RN, PATIENT AWAKE, ALERT AND ORIENTED X4. DENIES PAIN, NO SOB OR S/S OF RESTLESSNESS. PLAN OF CARE DISCUSSED. BED IN LOCKED AND LOWEST POSITION. PATIENT IS ABLE TO USE BEDSIDE COMMODE INDEPENDENTLY. ENCOURAGED TO CALL FOR ASSISTANCE PRN. CALL LIGHT AND PHONE WITHIN REACH. WILL CONTINUE TO MONITOR Q1HR AND PRN.
[2020-02-18 08:00] VITALS: BP 112/63
[2020-02-18 08:04] VITALS: BP 112/63
[2020-02-18] MEDS: Ensure HIGH Protein Chocolate 8oz Bottle PO SCH ×2 (08:27→12:00)
[2020-02-18] MEDS: cefTRIAXone 1GM/50ML D5W 50 ML IV SCH (09:11)
[2020-02-18] MEDS: NICOTINE 21MG/24 HR TOPICAL PATCH TD SCH (09:13)
[2020-02-18] MEDS: ASPirin-EC 81 mg tab PO SCH (09:14)
[2020-02-18] MEDS: FAMOTIDINE 20 MG TAB PO SCH (09:14)
[2020-02-18] MEDS: FOLIC ACID 1 MG TAB PO SCH (09:15)
[2020-02-18] MEDS: POTASSIUM CHL 10 Meq TABLET PO SCH (09:16)
[2020-02-18] MEDS: FUROSEMIDE 40 MG TAB PO SCH (09:25)
[2020-02-18] MEDS: SODIUM FERR GLUC 62.5MG/5ML 125 MG in SODIUM CHL 0.9% 100 ML IV SCH (12:00)
[2020-02-18 12:38] VITALS: BP 112/63
[2020-02-18 13:00] VITALS: BP 119/72
--- NOTE | 2020-02-18 15:10 | NUR ---
PATIENT DISCHARGED HOME PER MD'S ORDER. DISCHARGE SUMMARY AND FOLLOW UP WITH [facility] DISCHARGE [facility] INFO GIVEN. PATIENT DISCHARGED HOME WITH 02 TANK. PATIENT VERBALIZED UNDERSTANDING. IV DISCONTINUED AND TELE BOX RETURNED TO ICU.
== END 2020-02-18 15:10 | disposition home or self-care (01) | DRG 194 ==
LOC: EDBD 15:12 → ER 15:12 → EDBD 15:13 → TELE 15:13 → TELE-EAST 02-10 00:37 → TELE-CENTR 02-10 04:29
PROVIDERS: ADMIT Nurse Practitioner Acute Care; ATTEND Internal Medicine
PROC: 0W993ZZ Drainage of Right Pleural Cavity, Percutaneous Approach (ICD-10-PCS; principal; 2020-02-09)
PROC: 30233N1 Transfusion of Nonautologous Red Blood Cells into Peripheral Vein, Percutaneous Approach (ICD-10-PCS; 2020-02-13)
PROC: 0W993ZZ Drainage of Right Pleural Cavity, Percutaneous Approach (ICD-10-PCS; 2020-02-16)
DX: I11.0 Hypertensive heart disease with heart failure (principal); I21.A1 Myocardial infarction type 2; J96.00 Acute respiratory failure, unspecified whether with hypoxia or hypercapnia; J18.9 Pneumonia, unspecified organism; J91.8 Pleural effusion in other conditions classified elsewhere; I07.1 Rheumatic tricuspid insufficiency; I27.20 Pulmonary hypertension, unspecified; K76.0 Fatty (change of) liver, not elsewhere classified; E44.1 Mild protein-calorie malnutrition; E83.42 Hypomagnesemia; E66.2 Morbid (severe) obesity with alveolar hypoventilation; I50.43 Acute on chronic combined systolic (congestive) and diastolic (congestive) heart failure; E87.1 Hypo-osmolality and hyponatremia; D50.9 Iron deficiency anemia, unspecified; F17.210 Nicotine dependence, cigarettes, uncomplicated; K80.20 Calculus of gallbladder without cholecystitis without obstruction; E87.6 Hypokalemia; N39.0 Urinary tract infection, site not specified; B96.20 Unspecified Escherichia coli [E. coli] as the cause of diseases classified elsewhere; Z20.828 Contact with and (suspected) exposure to other viral communicable diseases; Y90.9 Presence of alcohol in blood, level not specified; E03.9 Hypothyroidism, unspecified; J98.11 Atelectasis; J44.0 Chronic obstructive pulmonary disease with (acute) lower respiratory infection; M17.12 Unilateral primary osteoarthritis, left knee; M25.462 Effusion, left knee; Z68.41 Body mass index [BMI] 40.0-44.9, adult; Z83.49 Family history of other endocrine, nutritional and metabolic diseases; Z83.3 Family history of diabetes mellitus; Z79.899 Other long term (current) drug therapy; F10.239 Alcohol dependence with withdrawal, unspecified; E88.09 Other disorders of plasma-protein metabolism, not elsewhere classified
CPT/HCPCS: 10022; 32555; 36415; 36600; 71045; 71250; 73562; 76604; 76942; 78452; 80048; 80053; 80061; 80307; 81001; 82270; 82805; 83540; 83550; 83615; 83735; 83880; 83986; 84295; 84439; 84443; 84481; 84484; 85025; 85379; 85610; 86141; 86850; 86900; 86901; 86920; 87086; 87088; 87186; 87205; 89051; 93005; 93017; 93306; 94640; 96361; 96374; 97163; 99291; G0378; J0153; J0696; J3490

== ENCOUNTER 2022-02-13 10:47 | Inpatient (IN) | payer MEDICARE, MEDICAID ==
[~2022-02-13] VITALS: Ht 152.4 cm; Wt 152.7 kg
[2022-02-13] MEDS: SODIUM CHLORIDE 0.9% 1,000 ML IV SCH (02:00)
[~2022-02-13 10:47] MED LIST: ALBUAER3 IN; ASPI-394 PO; ATOR20TA50 PO; FAMO20TA10 PO; FER325T PO; FOLI1TAB6 PO; FURO40TA4 PO; LEV50T PO; POTA-167 PO
[2022-02-13 11:55] LABS: Basophils # (auto) 0 10 ^3/uL (0-0.2); Basophils % (auto) 0.2 % (0.0-2.0); Eosinophils # (auto) 0 10 ^3/uL (0-0.8); Lymphocytes # (auto) 1.2 10 ^3/uL (0.4-5.4); Lymphocytes % (auto) 7.6 % (10.0-50.0); Mean Corpuscular Volume 117.4 fL (80.0-100.0); Monocytes # (auto) 0.3 10 ^3/uL (0-1.3); Neutrophils % (auto) 90.2 % (37.0-80.0); White Blood Cell 15.5 10^3/uL (4.4-10.8)
[2022-02-13 11:58] LABS: Hematocrit 19.8 % (36.0-46.0); Mean Corpuscular Hemoglobin 38.1 pg (28.0-32.0); Mean Corpuscular Hgb Conc. 32.5 g/dL (32.0-36.0); Red Blood Cells 1.69 10^6/uL (4.0-5.20); Red Cell Distribution Width 16.3 % (11.8-14.3)
[2022-02-13 12:05] LABS: Albumin 2.3 g/dL (3.4-5.0); Calcium 8.5 mg/dL (8.5-10.1); Potassium 3.9 mmol/L (3.5-5.1)
[2022-02-13 12:08] LABS: Hemoglobin 6.4 g/dL (12.2-16.2)
[2022-02-13 12:09] LABS: BUN/Creatinine Ratio 10.9; Bilirubin, Total 8.5 mg/dL (0.2-1.0); Total Protein 7.2 g/dL (6.4-8.2)
[2022-02-13] MEDS ORDERED: cefTRIAXone 1GM/50ML D5W 50 ML IV ONE (15:15)
[2022-02-13] MEDS ORDERED: AZITHROMYCIN 500MG/ 250ML 250 ML IV ONE (15:15)
[2022-02-13] MEDS ORDERED: SODIUM CHLORIDE 0.9% 1,000 ML IV ONE ×2 (15:15)
[2022-02-13 16:07] LABS: Lactic Acid w/Reflex 4.3 mmol/L (0.4-2.0)
[2022-02-13] MEDS ORDERED: DOCUSATE SOD 100 MG CAP PO PRN (17:00)
[2022-02-13] MEDS ORDERED: VANCOMYCIN PER PHARMACY 0 MG IV SCH (17:00)
[2022-02-13] MEDS ORDERED: ONDANSETRON HCL 4 MG/2 ML VIAL IV PRN (17:00)
[2022-02-13] MEDS ORDERED: ALBUMIN 25% 100 ML IV ONE (17:15)
[2022-02-13] MEDS ORDERED: NITROGLYCERIN 0.4 MG SL TAB SL PRN (18:00)
[2022-02-13] MEDS ORDERED: MORPHINE SULFATE INJ 2 MG/ml SYRG IV PRN (18:00)
[2022-02-13 18:55] VITALS: BP 102/74
[2022-02-13 19:10] VITALS: BP 110/68
[2022-02-13 19:38] LABS: Basophils # (auto) 0 10 ^3/uL (0-0.2); Eosinophils # (auto) 0 10 ^3/uL (0-0.8); Hematocrit 15.5 % (36.0-46.0); Lymphocytes % (auto) 7.6 % (10.0-50.0); Neutrophils # (auto) 11.4 10 ^3/uL (1.6-8.6); Red Blood Cells 1.37 10^6/uL (4.0-5.20)
[2022-02-13 19:41] LABS: Basophils % (auto) 0.1 % (0.0-2.0); Eosinophils % (auto) 0.1 % (0.0-7.0); Mean Corpuscular Hemoglobin 38.6 pg (28.0-32.0); Mean Corpuscular Hgb Conc. 34.2 g/dL (32.0-36.0); Monocytes # (auto) 0.3 10 ^3/uL (0-1.3); Monocytes % (auto) 2.5 % (0.0-12.0); Neutrophils % (auto) 89.7 % (37.0-80.0); Nucleated Red Blood Cells % 0.1 %; Red Cell Distribution Width 15.9 % (11.8-14.3); White Blood Cell 12.7 10^3/uL (4.4-10.8)
[2022-02-13 19:45] LABS: Hemoglobin 5.3 g/dL (12.2-16.2)
[2022-02-13 19:55] LABS: Albumin 1.9 g/dL (3.4-5.0); Calcium 7.8 mg/dL (8.5-10.1); Potassium 3.3 mmol/L (3.5-5.1)
[2022-02-13 20:00] VITALS: BP 115/79
[2022-02-13 20:00] LABS: BUN/Creatinine Ratio 11.5; Bilirubin, Total 7.2 mg/dL (0.2-1.0); Total Protein 5.4 g/dL (6.4-8.2)
[2022-02-13 20:20] LABS: Urine Bacteria MOD /hpf (None Seen); Urine Blood Negative /uL (Negative); Urine Hyaline Cast MOD /lpf (0 - 2); Urine Mucus FEW (None Seen); Urine WBC 5 /hpf (0 - 5); Urine WBC Clumps PRESENT /hpf (None Seen)
[2022-02-13 21:00] VITALS: BP 118/79
[2022-02-13] MEDS: VANCOMYCIN 1GM/250ML 250 ML IV SCH (21:15)
[2022-02-14] MEDS: MORPHINE SULFATE INJ 2 MG/ml SYRG IV PRN (01:33)
[2022-02-14 05:00] VITALS: BP 140/88
[2022-02-14 06:07] LABS: Basophils # (auto) 0 10 ^3/uL (0-0.2); Basophils % (auto) 0.3 % (0.0-2.0); Eosinophils # (auto) 0 10 ^3/uL (0-0.8); Monocytes % (auto) 2.7 % (0.0-12.0); Nucleated Red Blood Cells % 0.1 %; Red Blood Cells 2.02 10^6/uL (4.0-5.20)
[2022-02-14 06:08] LABS: Eosinophils % (auto) 0.2 % (0.0-7.0); Hematocrit 21.5 % (36.0-46.0); Hemoglobin 7.3 g/dL (12.2-16.2); Lymphocytes # (auto) 1.2 10 ^3/uL (0.4-5.4); Lymphocytes % (auto) 9.1 % (10.0-50.0); Mean Corpuscular Hgb Conc. 33.8 g/dL (32.0-36.0); Mean Corpuscular Volume 106.5 fL (80.0-100.0); Monocytes # (auto) 0.4 10 ^3/uL (0-1.3); Neutrophils # (auto) 11.4 10 ^3/uL (1.6-8.6); Neutrophils % (auto) 87.7 % (37.0-80.0)
[2022-02-14 06:20] LABS: Red Cell Distribution Width 21.2 % (11.8-14.3)
[2022-02-14 06:26] LABS: Albumin 2.2 g/dL (3.4-5.0); Calcium 7.8 mg/dL (8.5-10.1); Potassium 3.3 mmol/L (3.5-5.1)
[2022-02-14 06:28] LABS: BUN/Creatinine Ratio 12.3
[2022-02-14 06:31] LABS: Bilirubin, Total 9.4 mg/dL (0.2-1.0); Total Protein 5.7 g/dL (6.4-8.2)
[2022-02-14] MEDS: LEVOTHYROXINE SODIUM 50 MCG TAB PO SCH (06:48)
[2022-02-14 08:08] VITALS: BP 95/47
[2022-02-14] MEDS: cefTRIAXone 1GM/50ML D5W 50 ML IV SCH (09:05)
[2022-02-14] MEDS: SODIUM CHLORIDE 0.9% 1,000 ML IV SCH (09:12)
[2022-02-14] MEDS ORDERED: ENOXAPARIN SOD 40 MG/0.4 ML SYRINGE SC SCH (10:00)
[2022-02-14] MEDS: MULTIPLE VITAMIN TAB PO SCH (11:18)
[2022-02-14] MEDS: VANCOMYCIN 1GM/250ML 250 ML IV SCH (11:19)
[2022-02-14 12:01] VITALS: BP 103/58
[2022-02-14] MEDS: SOD CHL 0.9%/ KCL 40MEQ 1,000 ML IV SCH (12:30)
[2022-02-14] MEDS ORDERED: POTASSIUM CHL 20 Meq TABLET PO ONE (12:30)
[2022-02-14 13:21] LABS: Magnesium 2.2 mg/dL (1.6-2.6); Phosphorus 1.8 mg/dL (2.5-4.90)
[2022-02-14] MEDS ORDERED: SODIUM PHOSPHATES 24 MEQ in SODIUM CHL 0.9% 100 ML IV ONE (15:45)
[2022-02-14 16:44] LABS: Basophils # (auto) 0 10 ^3/uL (0-0.2); Eosinophils # (auto) 0 10 ^3/uL (0-0.8); Eosinophils % (auto) 0.2 % (0.0-7.0); Monocytes # (auto) 0.3 10 ^3/uL (0-1.3); Monocytes % (auto) 1.8 % (0.0-12.0)
[2022-02-14 16:45] LABS: Basophils % (auto) 0.1 % (0.0-2.0); Hematocrit 22.9 % (36.0-46.0); Hemoglobin 7.7 g/dL (12.2-16.2); Lymphocytes # (auto) 1.5 10 ^3/uL (0.4-5.4); Lymphocytes % (auto) 10.2 % (10.0-50.0); Mean Corpuscular Hemoglobin 35.2 pg (28.0-32.0); Mean Corpuscular Hgb Conc. 33.6 g/dL (32.0-36.0); Mean Corpuscular Volume 104.7 fL (80.0-100.0); Neutrophils # (auto) 12.5 10 ^3/uL (1.6-8.6); Neutrophils % (auto) 87.7 % (37.0-80.0); Red Blood Cells 2.19 10^6/uL (4.0-5.20); Red Cell Distribution Width 21.3 % (11.8-14.3); White Blood Cell 14.3 10^3/uL (4.4-10.8)
[2022-02-14 16:56] VITALS: BP 90/48
[2022-02-14 17:36] LABS: Carcinoembryonic Antigen 2.47 ng/mL (<5.0 OR =); Free T4 (Free Thyroxine) 0.11 ng/dL (0.89-1.76)
[2022-02-14 18:59] LABS: INR 1.27 (0.9-1.15); Partial Thromboplastin Time 31.3 sec (23.6-33.0)
[2022-02-14 22:00] VITALS: BP 103/71
[2022-02-14] MEDS: NYSTATIN TOPICAL POWDER 15GM TOP SCH (23:13)
[2022-02-15] MEDS: HYDROcodone-ACET 5/325MG TAB PO PRN ×3 (00:15→17:46)
[2022-02-15] MEDS: VANCOMYCIN 1GM/250ML 250 ML IV SCH ×3 (01:00→23:59)
[2022-02-15 05:00] VITALS: BP 99/56
[2022-02-15] MEDS: SOD CHL 0.9%/ KCL 40MEQ 1,000 ML IV SCH ×2 (05:31→15:10)
[2022-02-15] MEDS: LEVOTHYROXINE SODIUM 50 MCG TAB PO SCH (06:47)
[2022-02-15 07:07] LABS: Basophils # (auto) 0 10 ^3/uL (0-0.2); Hemoglobin 7.1 g/dL (12.2-16.2); Monocytes # (auto) 0.3 10 ^3/uL (0-1.3)
[2022-02-15 07:09] LABS: Basophils % (auto) 0.2 % (0.0-2.0); Eosinophils # (auto) 0.1 10 ^3/uL (0-0.8); Eosinophils % (auto) 0.4 % (0.0-7.0); Hematocrit 20.6 % (36.0-46.0); Lymphocytes # (auto) 1.8 10 ^3/uL (0.4-5.4); Lymphocytes % (auto) 12.4 % (10.0-50.0); Mean Corpuscular Hemoglobin 36.2 pg (28.0-32.0); Mean Corpuscular Hgb Conc. 34.3 g/dL (32.0-36.0); Mean Corpuscular Volume 105.6 fL (80.0-100.0); Monocytes % (auto) 2.2 % (0.0-12.0); Neutrophils # (auto) 12.2 10 ^3/uL (1.6-8.6); Neutrophils % (auto) 84.8 % (37.0-80.0); Nucleated Red Blood Cells % 0.1 %; Red Blood Cells 1.95 10^6/uL (4.0-5.20); Red Cell Distribution Width 21.4 % (11.8-14.3); White Blood Cell 14.4 10^3/uL (4.4-10.8)
[2022-02-15 07:13] LABS: Albumin 2.1 g/dL (3.4-5.0); Potassium 4.1 mmol/L (3.5-5.1)
[2022-02-15 07:26] LABS: Bilirubin, Total 6.6 mg/dL (0.2-1.0); Total Protein 5.7 g/dL (6.4-8.2)
[2022-02-15 09:00] VITALS: BP 88/54
[2022-02-15] MEDS: cefTRIAXone 1GM/50ML D5W 50 ML IV SCH (09:20)
[2022-02-15] MEDS: NYSTATIN TOPICAL POWDER 15GM TOP SCH ×2 (09:21→21:45)
[2022-02-15] MEDS: MULTIPLE VITAMIN TAB PO SCH (09:21)
[2022-02-15 13:00] VITALS: BP 90/56
[2022-02-15 16:00] VITALS: BP 89/44
[2022-02-15 22:00] VITALS: BP 97/51
[2022-02-16] VITALS (7 sets, daily range): BP systolic 70–90; BP diastolic 42–50
[2022-02-16] MEDS ORDERED: VANCOMYCIN 1GM/250ML 250 ML IV SCH (01:00)
[2022-02-16] MEDS: SOD CHL 0.9%/ KCL 40MEQ 1,000 ML IV SCH (04:30)
[2022-02-16] MEDS: LEVOTHYROXINE SODIUM 50 MCG TAB PO SCH (06:29)
[2022-02-16] MEDS: MULTIPLE VITAMIN TAB PO SCH (09:06)
[2022-02-16] MEDS: cefTRIAXone 1GM/50ML D5W 50 ML IV SCH (09:06)
[2022-02-16] MEDS: NYSTATIN TOPICAL POWDER 15GM TOP SCH ×2 (09:06→22:00)
[2022-02-16 11:55] LABS: BUN/Creatinine Ratio 12.3; Calcium 7.4 mg/dL (8.5-10.1); Potassium 4.5 mmol/L (3.5-5.1)
[2022-02-16 11:56] LABS: Albumin 1.2 g/dL (3.4-5.0); Bilirubin, Total 5.9 mg/dL (0.2-1.0)
[2022-02-16 12:34] LABS: Phosphorus 1.9 mg/dL (2.5-4.90)
[2022-02-16] MEDS: SODIUM CHLORIDE 0.9% 1,000 ML IV SCH ×2 (12:47→22:30)
[2022-02-16 14:29] LABS: Hematocrit 20.4 % (36.0-46.0); Mean Corpuscular Hemoglobin 35.6 pg (28.0-32.0); Mean Corpuscular Hgb Conc. 32.7 g/dL (32.0-36.0); Mean Corpuscular Volume 108.8 fL (80.0-100.0); Red Blood Cells 1.87 10^6/uL (4.0-5.20); White Blood Cell 18.4 10^3/uL (4.4-10.8)
[2022-02-16 14:58] LABS: INR 1.31 (0.9-1.15)
[2022-02-16 15:33] LABS: Red Cell Distribution Width 21.7 % (11.8-14.3)
[2022-02-16 15:35] LABS: Basophils % (manual) 0 (0.0-2.0); Blast Cells 0; Eosinophils % (manual) 0 (0-7); Hemoglobin 6.7 g/dL (12.2-16.2); Metamyelocytes % 0; Myelocytes % 0; Promyelocytes % 0; Reactive Lymphocytes 0
[2022-02-16] MEDS: VANCOMYCIN 1GM/250ML 250 ML IV SCH (16:00)
[2022-02-16] MEDS: ACETAMINOPHEN 325 MG TAB PO PRN (16:08)
[2022-02-16 17:24] LABS: Band Neutrophils % (manual) 7; Lymphocytes % (manual) 18 (10.0-50.0); Monocytes % (manual) 4 (0-12)
[2022-02-17] VITALS (24 sets, daily range): BP systolic 73–124; BP diastolic 37–69
[2022-02-17] MEDS: ACETAMINOPHEN 325 MG TAB PO PRN (03:21)
[2022-02-17 06:42] LABS: Hematocrit 19.7 % (36.0-46.0); Mean Corpuscular Hemoglobin 35.3 pg (28.0-32.0); Mean Corpuscular Volume 103.9 fL (80.0-100.0); White Blood Cell 19.8 10^3/uL (4.4-10.8)
[2022-02-17 06:47] LABS: Red Cell Distribution Width 21.4 % (11.8-14.3)
[2022-02-17 06:50] LABS: Hemoglobin 6.7 g/dL (12.2-16.2)
[2022-02-17 06:51] LABS: Band Neutrophils % (manual) 0; Basophils % (manual) 0 (0.0-2.0); Blast Cells 0; Promyelocytes % 0; Reactive Lymphocytes 0
[2022-02-17 06:53] LABS: INR 1.33 (0.9-1.15)
[2022-02-17 06:55] LABS: Albumin 1.8 g/dL (3.4-5.0); BUN/Creatinine Ratio 12.8; Calcium 7.4 mg/dL (8.5-10.1); Magnesium 1.9 mg/dL (1.6-2.6); Potassium 4.5 mmol/L (3.5-5.1)
[2022-02-17 06:58] LABS: Bilirubin, Total 6.5 mg/dL (0.2-1.0); Total Protein 5.6 g/dL (6.4-8.2)
[2022-02-17] MEDS ORDERED: LEVOTHYROXINE SODIUM 50 MCG TAB PO SCH (07:00)
[2022-02-17] MEDS ORDERED: IOHEXOL 300 MG/ML 100ML BOTTLE IJ ONE (07:20)
[2022-02-17] MEDS: SODIUM CHLORIDE 0.9% 1,000 ML IV SCH ×2 (08:30→18:41)
[2022-02-17 08:31] LABS: Eosinophils % (manual) 1 (0-7); Lymphocytes % (manual) 13 (10.0-50.0); Metamyelocytes % 3; Monocytes % (manual) 5 (0-12); Myelocytes % 1
[2022-02-17] MEDS ORDERED: SODIUM CHLORIDE 0.9% 500 ML IV ONE (08:45)
[2022-02-17] MEDS: NYSTATIN TOPICAL POWDER 15GM TOP SCH ×2 (11:09→22:16)
[2022-02-17] MEDS: MULTIPLE VITAMIN TAB PO SCH (11:09)
[2022-02-17] MEDS: cefTRIAXone 1GM/50ML D5W 50 ML IV SCH (12:47)
[2022-02-17] MEDS ORDERED: LEVOTHYROXINE SODIUM 100 MCG/5 ML INJ IV ONE (13:30)
[2022-02-17] MEDS: HYDROcodone-ACET 5/325MG TAB PO PRN (21:23)
[2022-02-18 00:08] LABS: Hematocrit 30.1 % (36.0-46.0); Hemoglobin 10.1 g/dL (12.2-16.2); Mean Corpuscular Hemoglobin 33.7 pg (28.0-32.0); Mean Corpuscular Hgb Conc. 33.6 g/dL (32.0-36.0); Mean Corpuscular Volume 100.3 fL (80.0-100.0); White Blood Cell 24.7 10^3/uL (4.4-10.8)
[2022-02-18 00:10] LABS: Red Cell Distribution Width 21.7 % (11.8-14.3)
[2022-02-18 00:11] LABS: Basophils % (manual) 0 (0.0-2.0); Blast Cells 0; Promyelocytes % 0; Reactive Lymphocytes 0
[2022-02-18 01:11] LABS: Band Neutrophils % (manual) 13; Eosinophils % (manual) 1 (0-7); Lymphocytes % (manual) 12 (10.0-50.0); Metamyelocytes % 1; Monocytes % (manual) 5 (0-12); Myelocytes % 3
[2022-02-18 05:00] VITALS: BP 109/60
[2022-02-18 05:01] LABS: Hematocrit 33.8 % (36.0-46.0); Mean Corpuscular Hemoglobin 32.9 pg (28.0-32.0); Mean Corpuscular Hgb Conc. 32.7 g/dL (32.0-36.0); Mean Corpuscular Volume 100.7 fL (80.0-100.0); Red Blood Cells 3.36 10^6/uL (4.0-5.20); White Blood Cell 24.7 10^3/uL (4.4-10.8)
[2022-02-18 05:16] LABS: INR 1.3 (0.9-1.15)
[2022-02-18 05:17] LABS: Basophils % (manual) 0 (0.0-2.0); Blast Cells 0; Promyelocytes % 0; Reactive Lymphocytes 0; Red Cell Distribution Width 22.4 % (11.8-14.3)
[2022-02-18 05:21] LABS: Albumin 2.2 g/dL (3.4-5.0); Band Neutrophils % (manual) 13; Calcium 8.3 mg/dL (8.5-10.1); Eosinophils % (manual) 1 (0-7); Lymphocytes % (manual) 11 (10.0-50.0); Metamyelocytes % 1; Monocytes % (manual) 6 (0-12); Myelocytes % 2; Potassium 4.6 mmol/L (3.5-5.1)
[2022-02-18 05:25] LABS: Total Protein 6.3 g/dL (6.4-8.2)
[2022-02-18] MEDS: SODIUM CHLORIDE 0.9% 1,000 ML IV SCH (06:18)
[2022-02-18 08:56] VITALS: BP 107/48
[2022-02-18] MEDS: cefTRIAXone 1GM/50ML D5W 50 ML IV SCH (09:00)
[2022-02-18] MEDS: MULTIPLE VITAMIN TAB PO SCH (09:01)
[2022-02-18] MEDS: NYSTATIN TOPICAL POWDER 15GM TOP SCH ×2 (09:10→22:16)
[2022-02-18] MEDS ORDERED: LEVOTHYROXINE SODIUM 100 MCG/5 ML INJ IV SCH (10:00)
[2022-02-18] MEDS: ALPRAZolam 0.5 MG TAB PO PRN ×2 (12:29→22:17)
[2022-02-18 13:00] VITALS: BP 126/66
[2022-02-18 13:52] LABS: Carcinoembryonic Antigen 2.41 ng/mL (<5.0 OR =)
[2022-02-18 13:54] LABS: Folate (Folic Acid) 11.22 ng/mL (5.38-24); Hepatitis B Surface Antibody Negative (Negative)
[2022-02-18 14:32] LABS: Hepatitis A Total Antibody Positive (Negative)
[2022-02-18] MEDS: MEROPENEM 2 GM in SODIUM CHL 0.9% 250 ML IV SCH ×2 (14:45→22:16)
[2022-02-18 15:52] LABS: Hepatitis C Antibody Negative (Negative)
[2022-02-18] MEDS ORDERED: ETOMIDATE (2MG/ML) 20ML VIAL IV ONE (15:59)
[2022-02-18] MEDS ORDERED: SUCCINYLCHOLINE CHLORIDE 20 MG/ML 10ML VIAL IV ONE (16:00)
[2022-02-18 16:34] VITALS: BP 118/60
[2022-02-18] MEDS: HYDROcodone-ACET 5/325MG TAB PO PRN (17:34)
[2022-02-18 22:00] VITALS: BP 101/59
[2022-02-19] VITALS (7 sets, daily range): BP systolic 83–99; BP diastolic 41–50
[2022-02-19] MEDS: HYDROcodone-ACET 5/325MG TAB PO PRN ×3 (01:39→21:40)
[2022-02-19] MEDS: MEROPENEM 2 GM in SODIUM CHL 0.9% 250 ML IV SCH ×3 (05:14→21:40)
[2022-02-19 07:31] LABS: Hematocrit 28.6 % (36.0-46.0); Hemoglobin 9.7 g/dL (12.2-16.2); Mean Corpuscular Hemoglobin 33.5 pg (28.0-32.0); Mean Corpuscular Hgb Conc. 33.8 g/dL (32.0-36.0); Mean Corpuscular Volume 99.1 fL (80.0-100.0); Red Blood Cells 2.88 10^6/uL (4.0-5.20); White Blood Cell 19.6 10^3/uL (4.4-10.8)
[2022-02-19 07:40] LABS: Red Cell Distribution Width 22.1 % (11.8-14.3)
[2022-02-19 07:41] LABS: Basophils % (manual) 0 (0.0-2.0); Blast Cells 0; Promyelocytes % 0; Reactive Lymphocytes 0
[2022-02-19 08:55] LABS: Band Neutrophils % (manual) 3; Eosinophils % (manual) 3 (0-7); Lymphocytes % (manual) 11 (10.0-50.0); Metamyelocytes % 1; Monocytes % (manual) 6 (0-12); Myelocytes % 3
[2022-02-19] MEDS: LEVOTHYROXINE SODIUM 100 MCG/5 ML INJ IV SCH (09:18)
[2022-02-19] MEDS: MULTIPLE VITAMIN TAB PO SCH (09:19)
[2022-02-19] MEDS: NYSTATIN TOPICAL POWDER 15GM TOP SCH ×2 (10:00→21:41)
[2022-02-19] MEDS ORDERED: ALBUMIN 25% 100 ML IV ONE (13:15)
[2022-02-19] MEDS: SODIUM CHLORIDE 0.9% 1,000 ML IV SCH ×2 (13:15→21:15)
[2022-02-19] MEDS ORDERED: VANCOMYCIN 500 MG in D5W 5% 100 ML IV ONE (19:00)
[2022-02-20 02:00] VITALS: BP 95/50
[2022-02-20] MEDS: ALPRAZolam 0.5 MG TAB PO PRN (02:36)
[2022-02-20] MEDS: MEROPENEM 2 GM in SODIUM CHL 0.9% 250 ML IV SCH ×3 (05:15→22:24)
[2022-02-20] MEDS: SODIUM CHLORIDE 0.9% 1,000 ML IV SCH ×3 (05:15→21:15)
[2022-02-20 05:52] LABS: Hematocrit 27.5 % (36.0-46.0); Hemoglobin 9.2 g/dL (12.2-16.2); Mean Corpuscular Hemoglobin 33.8 pg (28.0-32.0); Mean Corpuscular Hgb Conc. 33.5 g/dL (32.0-36.0); Red Blood Cells 2.73 10^6/uL (4.0-5.20); White Blood Cell 17.9 10^3/uL (4.4-10.8)
[2022-02-20 05:55] LABS: Red Cell Distribution Width 22.3 % (11.8-14.3)
[2022-02-20 05:56] LABS: Basophils % (manual) 0 (0.0-2.0); Blast Cells 0; Myelocytes % 0; Promyelocytes % 0; Reactive Lymphocytes 0
[2022-02-20 06:08] LABS: Albumin 1.9 g/dL (3.4-5.0); Potassium 4.9 mmol/L (3.5-5.1)
[2022-02-20 06:18] LABS: BUN/Creatinine Ratio 11.3; Bilirubin, Total 6.4 mg/dL (0.2-1.0); CRP High Sensitivity 9.44 mg/dL (< 0.3); Phosphorus 4.3 mg/dL (2.5-4.90); Total Protein 5.6 g/dL (6.4-8.2)
[2022-02-20 07:47] LABS: Band Neutrophils % (manual) 14; Eosinophils % (manual) 2 (0-7); Lymphocytes % (manual) 14 (10.0-50.0); Metamyelocytes % 2; Monocytes % (manual) 7 (0-12)
[2022-02-20 09:00] VITALS: BP 124/106
[2022-02-20] MEDS: MULTIPLE VITAMIN TAB PO SCH (10:00)
[2022-02-20] MEDS ORDERED: SODIUM BICARBONATE 8.4 % INJ 50ML VIAL IV ONE ×2 (10:45→13:00)
[2022-02-20 13:00] VITALS: BP 96/41
[2022-02-20] MEDS: NYSTATIN TOPICAL POWDER 15GM TOP SCH ×2 (14:14→23:01)
[2022-02-20] MEDS: LEVOTHYROXINE SODIUM 100 MCG/5 ML INJ IV SCH (14:14)
[2022-02-20] MEDS: HALOPERIDOL LACTATE 5 MG/ML INJ VIAL IM PRN ×2 (15:03→23:00)
[2022-02-20] MEDS: FOLIC ACID 1 MG, MULTIPLE VITAMIN 10 ML, MAGNESIUM SULF SDV 50% 8 MEQ, THIAMINE INJ 100... INJ SCH ×5 (15:13)
[2022-02-20] MEDS ORDERED: ALBUMIN 5% 250 ML IV ONE (15:30)
[2022-02-20] MEDS: LORazepam 2MG/ML-1ML VIAL IV PRN (15:55)
[2022-02-20 16:18] LABS: Urine Amorphous Crystal MANY /hpf (None Seen); Urine Bacteria MOD /hpf (None Seen); Urine Blood 3+ /uL (Negative); Urine Hyaline Cast FEW /lpf (0 - 2); Urine Mucus FEW (None Seen); Urine Specific Gravity 1.032 (1.001-1.035); Urine WBC 42 /hpf (0 - 5)
[2022-02-20 17:00] VITALS: BP 97/59
[2022-02-20] MEDS: HYDROcodone-ACET 5/325MG TAB PO PRN (17:16)
[2022-02-20] MEDS: Pro-Stat SF 30ml Vanilla PO SCH (17:25)
[2022-02-20] MEDS: MORPHINE SULFATE INJ 2 MG/ml SYRG IV PRN (18:53)
[2022-02-21] VITALS (7 sets, daily range): BP systolic 85–98; BP diastolic 24–48
[2022-02-21] MEDS: LACTULOSE 20Gm/30ML SOLN PO SCH ×4 (00:15→17:00)
[2022-02-21 05:31] LABS: INR 1.23 (0.9-1.15)
[2022-02-21] MEDS: MEROPENEM 2 GM in SODIUM CHL 0.9% 250 ML IV SCH ×2 (05:31→14:25)
[2022-02-21] MEDS: SODIUM CHLORIDE 0.9% 1,000 ML IV SCH (05:31)
[2022-02-21 05:33] LABS: % Iron Saturation 51.6 % (15-50); Hematocrit 28.6 % (36.0-46.0); Hemoglobin 9.3 g/dL (12.2-16.2); Mean Corpuscular Hemoglobin 33.2 pg (28.0-32.0); Mean Corpuscular Hgb Conc. 32.4 g/dL (32.0-36.0); Mean Corpuscular Volume 102.7 fL (80.0-100.0); Red Blood Cells 2.79 10^6/uL (4.0-5.20); White Blood Cell 16.2 10^3/uL (4.4-10.8)
[2022-02-21 05:36] LABS: Potassium 5.3 mmol/L (3.5-5.1)
[2022-02-21 05:38] LABS: Red Cell Distribution Width 22.9 % (11.8-14.3)
[2022-02-21 05:40] LABS: Basophils % (manual) 0 (0.0-2.0); Blast Cells 0; Myelocytes % 0; Promyelocytes % 0; Reactive Lymphocytes 0
[2022-02-21 05:44] LABS: BUN/Creatinine Ratio 9.3; Bilirubin, Total 5.8 mg/dL (0.2-1.0); Calcium 7.9 mg/dL (8.5-10.1)
[2022-02-21 06:06] LABS: Ferritin > 1650.0 ng/mL (10-322)
[2022-02-21 07:24] LABS: Band Neutrophils % (manual) 5; Eosinophils % (manual) 1 (0-7); Lymphocytes % (manual) 16 (10.0-50.0); Metamyelocytes % 3; Monocytes % (manual) 2 (0-12)
[2022-02-21] MEDS: Pro-Stat SF 30ml Vanilla PO SCH ×2 (07:25→17:00)
[2022-02-21] MEDS: MULTIPLE VITAMIN TAB PO SCH (09:28)
[2022-02-21] MEDS: NYSTATIN TOPICAL POWDER 15GM TOP SCH ×2 (09:28→21:44)
[2022-02-21] MEDS: LEVOTHYROXINE SODIUM 100 MCG/5 ML INJ IV SCH (09:28)
[2022-02-21] MEDS: LORazepam 2MG/ML-1ML VIAL IV PRN (09:29)
[2022-02-21] MEDS ORDERED: SODIUM BICARBONATE 8.4 % INJ 50ML VIAL IV ONE (09:45)
[2022-02-21] MEDS: D5W/SOD CHLO 0.9% 1,000 ML IV SCH ×2 (12:15→21:42)
[2022-02-21] MEDS: MORPHINE SULFATE INJ 2 MG/ml SYRG IV PRN (13:48)
[2022-02-21] MEDS: FOLIC ACID 1 MG, MULTIPLE VITAMIN 10 ML, MAGNESIUM SULF SDV 50% 8 MEQ, THIAMINE INJ 100... INJ SCH ×5 (14:26)
[2022-02-22] MEDS ORDERED: MEROPENEM 2 GM in SODIUM CHL 0.9% 250 ML IV SCH (02:00)
[2022-02-22] MEDS: HALOPERIDOL LACTATE 5 MG/ML INJ VIAL IM PRN (02:40)
[2022-02-22 05:00] VITALS: BP 89/48
[2022-02-22] MEDS: LACTULOSE 20Gm/30ML SOLN PO SCH ×4 (06:00→17:06)
[2022-02-22 09:00] VITALS: BP 87/44
[2022-02-22] MEDS: Pro-Stat SF 30ml Vanilla PO SCH ×2 (09:11→17:06)
[2022-02-22] MEDS: LEVOTHYROXINE SODIUM 100 MCG/5 ML INJ IV SCH (09:12)
[2022-02-22] MEDS: MULTIPLE VITAMIN TAB PO SCH (09:12)
[2022-02-22] MEDS: NYSTATIN TOPICAL POWDER 15GM TOP SCH ×2 (09:12→22:16)
[2022-02-22] MEDS ORDERED: BUMETANIDE 2.5mg/10ml (0.25 mg/ml) INJ IV ONE (10:00)
[2022-02-22 10:17] LABS: BUN/Creatinine Ratio 9.3; Calcium 7.9 mg/dL (8.5-10.1); Potassium 5.1 mmol/L (3.5-5.1)
[2022-02-22] MEDS: DOPamine 1600MCG/ML D5W 250 ML IV SCH (10:50)
[2022-02-22] MEDS: SODIUM BICARBONATE 50ML VIAL 50 ML in SOD CHL 0.45% 1,000 ML IV SCH (10:50)
[2022-02-22] MEDS: ALBUMIN 25% 50 ML IV SCH ×2 (11:48→17:48)
[2022-02-22 12:39] VITALS: BP 90/41
[2022-02-22] MEDS: LINEZOLID 600MG/300ML 300 ML IV SCH ×2 (13:15→22:15)
[2022-02-22] MEDS: FOLIC ACID 1 MG, MULTIPLE VITAMIN 10 ML, MAGNESIUM SULF SDV 50% 8 MEQ, THIAMINE INJ 100... INJ SCH ×5 (13:16)
[2022-02-22 15:23] LABS: BUN/Creatinine Ratio 8.8; Calcium 8.3 mg/dL (8.5-10.1); Potassium 5.1 mmol/L (3.5-5.1)
[2022-02-22] MEDS: FUROSEMIDE 100 MG/10ML VIAL IV SCH ×2 (16:00→22:15)
[2022-02-22 16:42] VITALS: BP 81/42
[2022-02-22] MEDS: MEROPENEM 1GM IVPB 100 ML IV SCH (17:06)
[2022-02-22 22:00] VITALS: BP 109/53
[2022-02-23] MEDS: MORPHINE SULFATE INJ 2 MG/ml SYRG IV PRN (00:45)
[2022-02-23] MEDS: ALBUMIN 25% 50 ML IV SCH ×3 (02:27→17:45)
[2022-02-23] MEDS: DOPamine 1600MCG/ML D5W 250 ML IV SCH (04:15)
[2022-02-23 05:00] VITALS: BP 93/45
[2022-02-23] MEDS: MEROPENEM 1GM IVPB 100 ML IV SCH ×2 (05:02→16:04)
[2022-02-23] MEDS: LACTULOSE 20Gm/30ML SOLN PO SCH ×4 (05:15→17:39)
[2022-02-23 07:55] LABS: Hemoglobin 8.7 g/dL (12.2-16.2); White Blood Cell 19.2 10^3/uL (4.4-10.8)
[2022-02-23 07:58] LABS: Hematocrit 26.6 % (36.0-46.0); Mean Corpuscular Hemoglobin 33.1 pg (28.0-32.0); Mean Corpuscular Hgb Conc. 32.5 g/dL (32.0-36.0); Mean Corpuscular Volume 101.9 fL (80.0-100.0); Red Blood Cells 2.61 10^6/uL (4.0-5.20)
[2022-02-23 08:08] LABS: Albumin 2.1 g/dL (3.4-5.0); Calcium 7.9 mg/dL (8.5-10.1); Potassium 4.4 mmol/L (3.5-5.1)
[2022-02-23] MEDS: LEVOTHYROXINE SODIUM 100 MCG/5 ML INJ IV SCH (08:11)
[2022-02-23 08:12] LABS: BUN/Creatinine Ratio 10.1; Bilirubin, Total 5.1 mg/dL (0.2-1.0); Total Protein 5.8 g/dL (6.4-8.2)
[2022-02-23] MEDS: Pro-Stat SF 30ml Vanilla PO SCH ×2 (08:14→17:39)
[2022-02-23] MEDS: FUROSEMIDE 100 MG/10ML VIAL IV SCH ×2 (08:14→22:03)
[2022-02-23] MEDS: SODIUM BICARBONATE 50ML VIAL 50 ML in SOD CHL 0.45% 1,000 ML IV SCH (08:15)
[2022-02-23] MEDS: MULTIPLE VITAMIN TAB PO SCH (08:15)
[2022-02-23] MEDS: NYSTATIN TOPICAL POWDER 15GM TOP SCH ×2 (08:16→22:04)
[2022-02-23] MEDS: LINEZOLID 600MG/300ML 300 ML IV SCH ×2 (08:18→22:03)
[2022-02-23 08:19] LABS: Red Cell Distribution Width 22.4 % (11.8-14.3)
[2022-02-23 08:20] LABS: Basophils % (manual) 0 (0.0-2.0); Blast Cells 0; Metamyelocytes % 0; Promyelocytes % 0; Reactive Lymphocytes 0
[2022-02-23 08:30] VITALS: BP 109/57
[2022-02-23 09:18] LABS: Band Neutrophils % (manual) 2; Eosinophils % (manual) 1 (0-7); Lymphocytes % (manual) 18 (10.0-50.0); Monocytes % (manual) 5 (0-12); Myelocytes % 1
[2022-02-23] MEDS ORDERED: FUROSEMIDE 100 MG/10ML VIAL IV SCH (10:00)
[2022-02-23] MEDS: FOLIC ACID 1 MG, MULTIPLE VITAMIN 10 ML, MAGNESIUM SULF SDV 50% 8 MEQ, THIAMINE INJ 100... INJ SCH ×5 (12:45)
[2022-02-23 13:00] VITALS: BP 135/61
[2022-02-24] MEDS: ALBUMIN 25% 50 ML IV SCH (02:07)
[2022-02-24 04:45] VITALS: BP 116/60
[2022-02-24] MEDS: MEROPENEM 1GM IVPB 100 ML IV SCH ×2 (04:45→17:45)
[2022-02-24] MEDS: SODIUM BICARBONATE 50ML VIAL 50 ML in SOD CHL 0.45% 1,000 ML IV SCH (04:46)
[2022-02-24] MEDS: LACTULOSE 20Gm/30ML SOLN PO SCH ×5 (05:41→23:23)
[2022-02-24] MEDS: DOPamine 1600MCG/ML D5W 250 ML IV SCH (05:49)
[2022-02-24 06:46] LABS: BUN/Creatinine Ratio 12.9; Calcium 8.2 mg/dL (8.5-10.1); Potassium 3.3 mmol/L (3.5-5.1)
[2022-02-24] MEDS: LINEZOLID 600MG/300ML 300 ML IV SCH ×2 (08:10→22:00)
[2022-02-24] MEDS: Pro-Stat SF 30ml Vanilla PO SCH ×2 (08:11→17:47)
[2022-02-24] MEDS: LEVOTHYROXINE SODIUM 100 MCG/5 ML INJ IV SCH (08:11)
[2022-02-24] MEDS: MULTIPLE VITAMIN TAB PO SCH (08:12)
[2022-02-24] MEDS: NYSTATIN TOPICAL POWDER 15GM TOP SCH ×2 (08:12→22:00)
[2022-02-24] MEDS: FUROSEMIDE 100 MG/10ML VIAL IV SCH (08:39)
[2022-02-24 09:00] VITALS: BP 106/64
[2022-02-24] MEDS ORDERED: POTASSIUM CHLORIDE 40 MEQ, LIDOCAINE 1% (LOCAL ANESTH.) 4 ML in SODIUM CHL 0.9% 250 ML IV ONE (09:45)
[2022-02-24 13:00] VITALS: BP 119/61
[2022-02-24] MEDS: MORPHINE SULFATE INJ 2 MG/ml SYRG IV PRN (14:34)
[2022-02-24 16:48] VITALS: BP 116/60
[2022-02-24] MEDS: FOLIC ACID 1 MG, MULTIPLE VITAMIN 10 ML, MAGNESIUM SULF SDV 50% 8 MEQ, THIAMINE INJ 100... INJ SCH ×5 (17:49)
[2022-02-24 22:00] VITALS: BP 114/57
[2022-02-25] MEDS: MEROPENEM 1GM IVPB 100 ML IV SCH (04:15)
[2022-02-25] MEDS: DOPamine 1600MCG/ML D5W 250 ML IV SCH (04:45)
[2022-02-25 05:00] VITALS: BP 101/61
[2022-02-25 05:47] LABS: Basophils # (auto) 0 10 ^3/uL (0-0.2); Basophils % (auto) 0.2 % (0.0-2.0); Eosinophils # (auto) 0.6 10 ^3/uL (0-0.8); Eosinophils % (auto) 2.8 % (0.0-7.0); Hematocrit 29.4 % (36.0-46.0); Hemoglobin 9.6 g/dL (12.2-16.2); Lymphocytes # (auto) 1.6 10 ^3/uL (0.4-5.4); Lymphocytes % (auto) 8.2 % (10.0-50.0); Mean Corpuscular Hemoglobin 32.9 pg (28.0-32.0); Mean Corpuscular Hgb Conc. 32.6 g/dL (32.0-36.0); Mean Corpuscular Volume 100.7 fL (80.0-100.0); Monocytes # (auto) 1.3 10 ^3/uL (0-1.3); Monocytes % (auto) 6.6 % (0.0-12.0); Neutrophils # (auto) 16.6 10 ^3/uL (1.6-8.6); Neutrophils % (auto) 82.2 % (37.0-80.0); Red Blood Cells 2.92 10^6/uL (4.0-5.20); White Blood Cell 20.1 10^3/uL (4.4-10.8)
[2022-02-25 05:57] LABS: Red Cell Distribution Width 22.3 % (11.8-14.3)
[2022-02-25] MEDS: LACTULOSE 20Gm/30ML SOLN PO SCH ×4 (06:00→23:51)
[2022-02-25 06:06] LABS: Albumin 2.2 g/dL (3.4-5.0); Potassium 3.5 mmol/L (3.5-5.1)
[2022-02-25 06:08] LABS: Calcium 8.5 mg/dL (8.5-10.1)
[2022-02-25 06:11] LABS: Bilirubin, Total 6.1 mg/dL (0.2-1.0)
[2022-02-25 09:00] VITALS: BP 120/67
[2022-02-25] MEDS: LINEZOLID 600MG/300ML 300 ML IV SCH ×2 (12:21→21:58)
[2022-02-25] MEDS: MORPHINE SULFATE INJ 2 MG/ml SYRG IV PRN (12:42)
[2022-02-25] MEDS: FUROSEMIDE 100 MG/10ML VIAL IV SCH (12:50)
[2022-02-25] MEDS: LEVOTHYROXINE SODIUM 100 MCG/5 ML INJ IV SCH (12:50)
[2022-02-25] MEDS: Pro-Stat SF 30ml Vanilla PO SCH ×2 (12:51→19:53)
[2022-02-25] MEDS: MULTIPLE VITAMIN TAB PO SCH (12:51)
[2022-02-25] MEDS: NYSTATIN TOPICAL POWDER 15GM TOP SCH ×2 (12:53→21:58)
[2022-02-25 12:54] VITALS: BP 113/65
[2022-02-25] MEDS: FOLIC ACID 1 MG, MULTIPLE VITAMIN 10 ML, MAGNESIUM SULF SDV 50% 8 MEQ, THIAMINE INJ 100... INJ SCH ×5 (13:35)
[2022-02-25 17:00] VITALS: BP 110/69
[2022-02-25] MEDS ORDERED: FOLIC ACID 1 MG, MULTIPLE VITAMIN 10 ML, MAGNESIUM SULF SDV 50% 8 MEQ, THIAMINE INJ 100... INJ SCH ×5 (17:00)
[2022-02-25 22:00] VITALS: BP 108/63
[2022-02-25] MEDS: MEROPENEM 2 GM in SODIUM CHL 0.9% 250 ML IV SCH (22:21)
[2022-02-26] MEDS: DOPamine 1600MCG/ML D5W 250 ML IV SCH (03:14)
[2022-02-26 05:00] VITALS: BP 117/62
[2022-02-26] MEDS: LACTULOSE 20Gm/30ML SOLN PO SCH ×4 (06:14→23:59)
[2022-02-26 09:00] VITALS: BP 129/65
[2022-02-26] MEDS: LEVOTHYROXINE SODIUM 100 MCG/5 ML INJ IV SCH (11:22)
[2022-02-26] MEDS: FUROSEMIDE 100 MG/10ML VIAL IV SCH (11:22)
[2022-02-26] MEDS: MULTIPLE VITAMIN TAB PO SCH (11:22)
[2022-02-26] MEDS: LINEZOLID 600MG/300ML 300 ML IV SCH ×2 (11:22→21:57)
[2022-02-26] MEDS: Pro-Stat SF 30ml Vanilla PO SCH ×2 (11:23→19:28)
[2022-02-26] MEDS: NYSTATIN TOPICAL POWDER 15GM TOP SCH ×2 (11:42→21:57)
[2022-02-26] MEDS: FOLIC ACID 1 MG, MULTIPLE VITAMIN 10 ML, MAGNESIUM SULF SDV 50% 8 MEQ, THIAMINE INJ 100... INJ SCH ×5 (12:50)
[2022-02-26] MEDS: MEROPENEM 2 GM in SODIUM CHL 0.9% 250 ML IV SCH ×2 (12:51→21:58)
[2022-02-26 13:00] VITALS: BP 118/63
[2022-02-26] MEDS: IPRATROPIUM BROM 0.5 MG/2.5ML INH SOL NEB SCH ×2 (16:07→21:32)
[2022-02-26] MEDS: ALBUTEROL SULF 2.5 MG/0.5ML(0.5%) NEB SOLN NEB SCH ×2 (16:07→21:32)
[2022-02-26 16:56] VITALS: BP 124/64
[2022-02-26 22:00] VITALS: BP 126/73
[2022-02-27] MEDS: DOPamine 1600MCG/ML D5W 250 ML IV SCH (00:28)
[2022-02-27 05:00] VITALS: BP 130/64
[2022-02-27] MEDS: LACTULOSE 20Gm/30ML SOLN PO SCH ×2 (05:57→12:00)
[2022-02-27 06:17] LABS: Hemoglobin 8.8 g/dL (12.2-16.2)
[2022-02-27 06:19] LABS: Hematocrit 26.7 % (36.0-46.0); Mean Corpuscular Hemoglobin 33.4 pg (28.0-32.0); Mean Corpuscular Hgb Conc. 32.9 g/dL (32.0-36.0); Mean Corpuscular Volume 101.8 fL (80.0-100.0); Red Blood Cells 2.63 10^6/uL (4.0-5.20)
[2022-02-27 06:23] LABS: Albumin 1.8 g/dL (3.4-5.0); Calcium 8.2 mg/dL (8.5-10.1); Potassium 3.8 mmol/L (3.5-5.1)
[2022-02-27 06:28] LABS: BUN/Creatinine Ratio 24.2; Bilirubin, Total 6.9 mg/dL (0.2-1.0); Phosphorus 5.1 mg/dL (2.5-4.90); Total Protein 6.2 g/dL (6.4-8.2)
[2022-02-27] MEDS: ALBUTEROL SULF 2.5 MG/0.5ML(0.5%) NEB SOLN NEB SCH ×2 (06:28→14:27)
[2022-02-27] MEDS: IPRATROPIUM BROM 0.5 MG/2.5ML INH SOL NEB SCH ×2 (06:28→14:29)
[2022-02-27 07:04] LABS: Red Cell Distribution Width 22.3 % (11.8-14.3)
[2022-02-27 07:05] LABS: Band Neutrophils % (manual) 0; Basophils % (manual) 0 (0.0-2.0); Blast Cells 0; Eosinophils % (manual) 0 (0-7); Metamyelocytes % 0; Myelocytes % 0; Promyelocytes % 0; Reactive Lymphocytes 0
[2022-02-27] MEDS: Pro-Stat SF 30ml Vanilla PO SCH (08:00)
[2022-02-27 08:09] LABS: Lymphocytes % (manual) 5 (10.0-50.0); Monocytes % (manual) 4 (0-12)
[2022-02-27 08:56] VITALS: BP 112/58
[2022-02-27] MEDS: MULTIPLE VITAMIN TAB PO SCH (10:00)
[2022-02-27] MEDS: NYSTATIN TOPICAL POWDER 15GM TOP SCH (10:00)
[2022-02-27] MEDS: MORPHINE SULFATE INJ 2 MG/ml SYRG IV PRN (10:09)
[2022-02-27] MEDS: LEVOTHYROXINE SODIUM 100 MCG/5 ML INJ IV SCH (10:12)
[2022-02-27] MEDS: FUROSEMIDE 100 MG/10ML VIAL IV SCH (10:14)
[2022-02-27] MEDS: LINEZOLID 600MG/300ML 300 ML IV SCH (10:15)
[2022-02-27] MEDS: MEROPENEM 2 GM in SODIUM CHL 0.9% 250 ML IV SCH (12:32)
[2022-02-27 12:39] VITALS: BP 125/59
[2022-02-27] MEDS: FOLIC ACID 1 MG, MULTIPLE VITAMIN 10 ML, MAGNESIUM SULF SDV 50% 8 MEQ, THIAMINE INJ 100... INJ SCH ×5 (13:20)
[2022-02-27 13:57] VITALS: BP 112/58
[2022-02-27 16:34] VITALS: BP 88/53
[2022-02-27] MEDS ORDERED: MEROPENEM 2 GM in SODIUM CHL 0.9% 250 ML IV SCH (20:00)
[2022-02-27] MEDS ORDERED: ETOMIDATE (2MG/ML) 20ML VIAL IV ONE (22:49)
[2022-02-27] MEDS ORDERED: ROCURONIUM 10MG/ML 10ML VIAL IV ONE (22:49)
== END 2022-02-27 17:29 | disposition hospice, home (50) | DRG 871 ==
LOC: ER 10:47 → EDBD 10:47 → TELE 18:00 → TELE-CENTR 23:16
PROVIDERS: ADMIT Nurse Practitioner Family; ATTEND Internal Medicine
PROC: 05HA33Z Insertion of Infusion Device into Left Brachial Vein, Percutaneous Approach (ICD-10-PCS; principal; 2022-02-13)
PROC: B54NZZA Ultrasonography of Left Upper Extremity Veins, Guidance (ICD-10-PCS; 2022-02-13)
PROC: 30233N1 Transfusion of Nonautologous Red Blood Cells into Peripheral Vein, Percutaneous Approach (ICD-10-PCS; 2022-02-13)
PROC: 5A09357 Assistance with Respiratory Ventilation, Less than 24 Consecutive Hours, Continuous Positive Airway Pressure (ICD-10-PCS; 2022-02-20)
PROC: 06HY33Z Insertion of Infusion Device into Lower Vein, Percutaneous Approach (ICD-10-PCS; 2022-02-20)
PROC: 5A09457 Assistance with Respiratory Ventilation, 24-96 Consecutive Hours, Continuous Positive Airway Pressure (ICD-10-PCS; 2022-02-21)
PROC: 5A09357 Assistance with Respiratory Ventilation, Less than 24 Consecutive Hours, Continuous Positive Airway Pressure (ICD-10-PCS; 2022-02-25)
DX: A41.9 Sepsis, unspecified organism (principal); E43 Unspecified severe protein-calorie malnutrition; N17.0 Acute kidney failure with tubular necrosis; J96.01 Acute respiratory failure with hypoxia; R65.21 Severe sepsis with septic shock; Z68.43 Body mass index [BMI] 50.0-59.9, adult; Z66 Do not resuscitate; E66.01 Morbid (severe) obesity due to excess calories; E78.5 Hyperlipidemia, unspecified; Z20.822 Contact with and (suspected) exposure to COVID-19; E88.09 Other disorders of plasma-protein metabolism, not elsewhere classified; F17.210 Nicotine dependence, cigarettes, uncomplicated; K76.9 Liver disease, unspecified; D53.9 Nutritional anemia, unspecified; E87.6 Hypokalemia; I12.9 Hypertensive chronic kidney disease with stage 1 through stage 4 chronic kidney disease, or unspecified chronic kidney disease; K70.10 Alcoholic hepatitis without ascites; E03.9 Hypothyroidism, unspecified; K76.0 Fatty (change of) liver, not elsewhere classified; N14.1 Nephropathy induced by other drugs, medicaments and biological substances; N18.32 Chronic kidney disease, stage 3b; N83.9 Noninflammatory disorder of ovary, fallopian tube and broad ligament, unspecified; T36.8X5A Adverse effect of other systemic antibiotics, initial encounter; Y92.89 Other specified places as the place of occurrence of the external cause; Z82.49 Family history of ischemic heart disease and other diseases of the circulatory system; Z83.3 Family history of diabetes mellitus
CPT/HCPCS: 36415; 36600; 70450; 71045; 74176; 76856; 80048; 80053; 80069; 80202; 80320; 81001; 82105; 82140; 82378; 82565; 82570; 82607; 82728; 82746; 82805; 83540; 83550; 83605; 83615; 83735; 83880; 83930; 83935; 84100; 84156; 84300; 84439; 84443; 84484; 85007; 85025; 85027; 85045; 85610; 85652; 85730; 86038; 86141; 86301; 86304; 86704; 86706; 86708; 86803; 86850; 86880; 86900; 86901; 86920; 87040; 87077; 87086; 87186; 87340; 93005; 93925; 94640; 94660; 96361; 96365; 96379; G0378; J0330; J0696; J2001; J2185; J2405; J3490; J7042; J7060; P9047